=== PATIENT | male | born 1935 | race Caucasian/White ===

== ENCOUNTER 2018-09-12 13:02 | Emergency (ER) | payer OTHER ==
--- OUTSIDE RECORDS SUMMARY | 2018-09-12 13:04 | XMS REPORT ---
:1935 [facility] [address] [place] [address] Care Team Providers Name Role Phone ANH VALDEZ Unavailable Unavailable Problems This patient has no known problems. Allergies, Adverse Reactions, Alerts This patient has no known allergies or adverse reactions. Medications This patient has no known medications. Results Test Description Test Time Test Comments Text Results Atomic Results Result Comments B-Type Natriuretic Peptide 2017-02-24 12:18:00 Test Item Value Reference Range Comments B-Type Natriuretic Peptide (test [id number]) 114.3 pg/mL 0.0-100.0 Lipid [id number] 23:52:00 Test Item Value Reference Range Comments Cholesterol (test 151 mg/dL 0-200 code=CHOL) Triglycerides (test 111 mg/dL 9-200 code=TRIG) HDL (test code=HDL) 44 mg/dL 40-60 Chol/HDL (test 3.4 Ratio 0.0-5.0 code=CHOLPHDL) LDL, Calculated (test 85 mg/dL 0-130 (NOTE)RISK OF HEART code=LDLC) DISEASEPublished by [place] Heart AssociationAnalyte Optimal Boderline Increased RiskCHOL <200 200-239 >240TRIG <150 150-199 >200HDL Male: >60 <40HDL Female: >60 <50LDL <100 130-159 >160LDL NEAR OPTIMAL IS 100-129 VLDL (test code=VLDL) 22 mg/dL 5-40 LDL/HDL (test code=LDLPHDL) 2 Comprehensive Metabolic [id number] 23:52:00 Test Item Value Reference Range Comments Sodium (test code=NA) 140 mmol/L 135-145 Potassium (test code=K) 4.4 mmol/L 3.5-5.1 Chloride (test code=CL) 106 mmol/L 98-105 Carbon Dioxide (test 25 mmol/L 22-29 code=CO2) Glucose (test code=GLU) 95 mg/dL 70-115 Blood Urea Nitrogen 21 mg/dL 8-23 (test code=BUN) Creatinine (test 1.0 mg/dL 0.7-1.2 code=CREAT) Calcium (test code=CA) 9.7 mg/dL 8.3-10.5 Prot Total (test 6.9 g/dL 6.4-8.3 code=TP) Albumin (test code=ALB) 4.2 g/dL 3.5-5.2 A/G Ratio (test 1.6 Ratio code=AGRATIO) Globulin (test 2.7 2.9-3.1 code=GLOB) Bili Total (test 0.4 mg/dL 0.1-0.9 code=TBIL) Alk Phos (test 60 U/L 40-129 code=APHOS) AST (test code=AST) 32 U/L 1-40 ALT (test code=ALT) 17 U/L 1-41 BUN/Creatinine Ratio 21.0 (test code=BCRATIO) Anion Gap (test 9 mmol/L 7-16 code=AGAP) Estimated GFR (test >60 mL/min/1.73m2 eGFR (estimated Glomerular code=GFR) Filtration Rate) is an estimated value,calculated from the patient's serum creatinine using the MDRD equation.It is NOT the patient's actual GFR. The eGFR provides a more clinicallyuseful measure of kidney disease than serum creatinine alone.This calculation takes sex and race into account, if the informationis provided. If the race is not provided, and the patient isAfrican-Liberian, multiply by 1.212. If sex is not provided, and thepatient is female, multiply by 0.742. Results for patients <18 years ofage have not been validated by the MDRD study and should be interpretedwith caution.eGFR Result Interpretation:eGFR > or=60 is in the Normal RangeeGFR < 60 may mean kidney diseaseeGFR < 15 may mean kidney failureRanges recommended by the National Kidney Foundation,http://nkdep.nih .gov CBC with [id number] 23:32:00 Test Item Value Reference Range Comments WBC (test code=WBC) 7.6 K/cumm 4.4-10.5 RBC (test code=RBC) 4.82 M/cumm 4.10-5.70 Hemoglobin (test code=HGB) 14.3 gm/dL 13.4-17.4 Hematocrit (test code=HCT) 44.2 % 38.7-52.0 MCV (test code=MCV) 91.7 fL 80-100 MCH (test code=MCH) 29.6 pg 27.0-32.5 MCHC (test code=MCHC) 32.3 g/dL 32.0-37.5 RDW (test code=RDW) 15.1 % 11.5-14.5 Platelet Count (test code=PLTCT) 173 K/cumm 140-440 MPV (test code=MPV) 13.1 fL Diff Method (test code=DIFFM) Auto Neutrophil (test code=NEUT) 59.1 % 36-70 Lymphocyte (test code=LYMPH) 27.0 % 12-44 Monocyte (test code=MONO) 11.3 % 0-11 Eosinophil (test code=EOS) 2.1 % 0-7 Basophil (test code=BASO) 0.6 % 0-2 Neutro Abs (test code=ANEUT) 4.5 K/cumm 1.6-7.4 Lymph Abs (test code=ALYMPH) 2.0 K/cumm 0.5-4.6 Runnels Abs (test code=AMONO) 0.9 K/cumm 0.0-1.2 Eos Abs (test code=AEOS) 0.16 K/cumm 0.00-0.74 Baso Abs (test code=ABASO) 0.1 K/cumm 0.00-0.21
[2018-09-12] MEDS ORDERED: HYDROCODONE/APAP 5/325 MG TAB ONE (14:11)
--- NOTE | 2018-09-12 14:39 | RAD REPORT ---
EXAM DESCRIPTION: RAD - Chest Single View - 09/12/2018 2:29 pm CLINICAL HISTORY: fall, left rib pain Chest pain. COMPARISON: No comparisons FINDINGS: Portable technique limits examination quality. The lungs are grossly clear. Calcified pleural plaques are present bilaterally. The heart is upper li askhat normal size with multilead pacer/defibrillator device present. IMPRESSION: No acute intrathoracic process suspected. 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
--- NOTE | 2018-09-12 14:41 | RAD REPORT ---
EXAM DESCRIPTION: RAD - Ribs Left - 09/12/2018 2:30 pm CLINICAL HISTORY: PAIN Trauma, rib pain COMPARISON: Chest Single View dated 09/12/2018 FINDINGS: Calcified pleural plaques are seen. Diffuse osteopenia is seen. Mildly displaced lateral l eft fifth rib fracture is seen. Nondisplaced lateral fourth rib fracture is present.
--- NOTE | 2018-09-12 14:56 | EDPHYS ---
Physician Documentation [facility] Name: Yasmany Ambriz Sr Age: 82 yrs Sex: Male : 1935 Arrival Date: 09/12/2018 Time: 13:07 Bed 24 Private MD: Out, [facility] ED Physician Adam Linder HPI: 09/12 14:00 This 82 yrs old Male presents to ER via Ambulatory with complaints of Fall pm1 Injury - left rib cage. 14:00 Details of fall: The patient fell from an upright position, while walking. Onset: The pm1 symptoms/episode began/occurred 4 day(s) ago. Associated injuries: The patient sustained injury to the head, contusion, left lateral rib cage. Severity of symptoms: in the emergency department the symptoms are actually worse, at the left rib cage. The patient has not experienced similar symptoms in the past. Patient tripped walking on his driveway. Hit the left side of his forehead and landed on his left rib cage. No LOC, headache, or neck pain. Patient reports left rib cage was improving until he lifted a heavy object yesterday. No shortness of breath or chest pain. Historical: - Allergies: 13:13 Dilaudid; la1 - Home Meds: 13:13 Plavix Oral [Active]; Isosorbide Mononitrate Oral [Active]; la1 - PMHx: 13:13 Hypertension; la1 - PSHx: 13:13 pacemaker/defib; la1 - Immunization history:: Adult Immunizations up to date. - Social history:: Smoking status: Patient uses tobacco products. - Ebola Screening: : No symptoms or risks identified at this time. ROS: 14:00 Constitutional: Negative for fever, chills, and weight loss, Eyes: Negative for injury, pm1 pain, redness, and discharge, ENT: Negative for injury, pain, and discharge, Neck: Negative for injury, pain, and swelling, Respiratory: Negative for shortness of breath, cough, wheezing, and pleuritic chest pain, Abdomen/GI: Negative for abdominal pain, nausea, vomiting, diarrhea, and constipation, Back: Negative for injury and pain, : Negative for injury, bleeding, discharge, and swelling, MS/Extremity: Negative for injury and deformity, Skin: Negative for injury, rash, and discoloration, Neuro: Negative for headache, weakness, numbness, tingling, and seizure. 14:00 Cardiovascular: Positive for left rib cage pain, Negative for chest pain, edema, orthopnea, palpitations. Exam: 14:00 Constitutional: This is a well developed, well nourished patient who is awake, alert, pm1 and in no acute distress. Head/Face: Normocephalic, atraumatic. Eyes: Pupils equal round and reactive to light, extra-ocular motions intact. Lids and lashes normal. Conjunctiva and sclera are non-icteric and not injected. Cornea within normal limits. Periorbital areas with no swelling, redness, or edema. ENT: Nares patent. No nasal discharge, no septal abnormalities noted. Tympanic membranes are normal and external auditory canals are clear. Oropharynx with no redness, swelling, or masses, exudates, or evidence of obstruction, uvula midline. Mucous membranes moist. Neck: Trachea midline, no thyromegaly or masses palpated, and no cervical lymphadenopathy. Supple, full range of motion without nuchal rigidity, or vertebral point tenderness. No Meningismus. 14:00 Cardiovascular: Regular rate and rhythm with a normal S1 and S2. No gallops, murmurs, or rubs. Normal PMI, no JVD. No pulse deficits. Respiratory: Lungs have equal breath sounds bilaterally, clear to auscultation and percussion. No rales, rhonchi or wheezes noted. No increased work of breathing, no retractions or nasal flaring. Abdomen/GI: Soft, non-tender, with normal bowel sounds. No distension or tympany. No guarding or rebound. No evidence of tenderness throughout. Back: No spinal tenderness. No costovertebral tenderness. Full range of motion. 14:00 MS/ Extremity: Pulses equal, no cyanosis. Neurovascular intact. Full, normal range of motion. 14:00 Chest/axilla: Inspection: normal, Palpation: crepitus, is not appreciated, tenderness, that is mild, of the lateral aspect of left rib cage, that totally reproduces the patient's complaints. 14:00 Skin: Appearance: normal except for affected area, injury, contusion(s), that are superficial, of the left side of forehead. 14:00 Neuro: Orientation: is normal, Motor: is normal, moves all fours, Gait: is steady, at a normal pace, without difficulty. Vital Signs: 13:15 BP 124 / 84; Pulse 60; Resp 16; Temp 97.2; Pulse Ox 98% on R/A; Weight 63.5 kg; Height la1 5 ft. 6 in. (167.64 cm); 14:45 BP 128 / 76; Pulse 64; Resp 17; Pulse Ox 99% on R/A; kr2 13:15 Body Mass Index 22.60 (63.50 kg, 167.64 cm) la1 MDM: 13:27 Patient medically screened. pm1 13:54 Refusal of service: The patient/guardian displays adequate decision making capability pm1 and despite a detailed discussion of alternatives, benefits, risks, and consequences refuses: CT Scan, Refused CT head and C-spine. 14:53 Data reviewed: vital signs. Data interpreted: Pulse oximetry: on room air is 98 %. pm1 Interpretation: normal. Counseling: I had a detailed discussion with the patient and/or guardian regarding: the historical points, exam findings, and any diagnostic results supporting the discharge/admit diagnosis, radiology results, the need for outpatient follow up, to return to the emergency department if symptoms worsen or persist or if there are any questions or concerns that arise at home. 09/12 13:54 Order name: Chest Single View XRAY; Complete Time: 14:45 pm1 09/12 13:54 Order name: Ribs Left XRAY; Complete Time: 14:45 pm1 Administered Medications: 14:06 Drug: [place] 5 mg-325 mg 1 tabs Route: PO; kr2 15:13 Follow up: Response: No adverse reaction kr2 15:13 Follow up: Response: Pain is decreased kr2 Disposition: 09/13 10:23 Co-signature as Attending Physician, Adam Linder MD. Disposition: 09/12/18 14:55 Discharged to Home. Impression: Multiple fractures of ribs - lateral mildly displaced left 5th rib and lateral nondisplaced left 4th rib fracture. - Condition is Stable. - Discharge Instructions: Rib Fracture, Rib Fracture, [id number]. - Prescriptions for Tylenol- Codeine #3 300-30 mg Oral Tablet - take 2 tablet by ORAL route every 6 hours As needed; 30 tablet. - Medication Reconciliation Form, Thank You Letter, Prescription Opioid Use form. - Follow up: Emergency Department; When: As needed; Reason: Worsening of condition. Follow up: Private Physician; When: 2 - 3 days; Reason: Recheck today's complaints, Continuance of care, Re-evaluation by your physician. - Problem is new. - Symptoms have improved. Signatures: Dispatcher [employer] EDMS Yoshi Tucker RN RN la1 Jourdan White, PELLET PREPARATION OPERATOR PELLET PREPARATION OPERATOR pm1 Adam Linder MD MD gs Reaves, Karey RN RN kr2 Corrections: (The following items were deleted from the chart) 09/12 15:16 14:55 09/12/2018 14:55 Discharged to Home. Impression: Multiple fractures of ribs - kr2 lateral mildly displaced left 5th rib and lateral nondisplaced left 4th rib fracture. Condition is Stable. Forms are Medication Reconciliation Form, Thank You Letter, Antibiotic Education, Prescription Opioid Use. Follow up: Emergency Department; When: As needed; Reason: Worsening of condition. Follow up: Private Physician; When: 2 - 3 days; Reason: Recheck today's complaints, Continuance of care, Re-evaluation by your physician. Problem is new. Symptoms have improved. pm1
--- NOTE | 2018-09-12 14:56 | ER ---
Nurse's Notes [facility] Name: Yasmany Ambriz Sr Age: 82 yrs Sex: Male : 1935 Arrival Date: 09/12/2018 Time: 13:07 Bed 24 Private MD: Out, [facility] Diagnosis: Multiple fractures of ribs-lateral mildly displaced left 5th rib and lateral nondisplaced left 4th rib fracture Presentation: 09/12 13:11 Presenting complaint: Patient states: Mechanical fall from standing on Friday with la1 injury to left side of forehead and left ribs. Pt denies LOC, states he is here for the pain in his ribs. Transition of care: patient was not received from another setting of care. Onset of symptoms was September 12, 2018. Risk Assessment: Do you want to hurt yourself or someone else? Patient reports no desire to harm self or others. Initial Sepsis Screen: Does the patient meet any 2 criteria? No. Patient's initial sepsis screen is negative. Does the patient have a suspected source of infection? No. Patient's initial sepsis screen is negative. Care prior to arrival: None. 13:11 Method Of Arrival: Ambulatory la1 13:11 Acuity: SEEMA 3 la1 Historical: - Allergies: 13:13 Dilaudid; la1 - Home Meds: 13:13 Plavix Oral [Active]; Isosorbide Mononitrate Oral [Active]; la1 - PMHx: 13:13 Hypertension; la1 - PSHx: 13:13 pacemaker/defib; la1 - Immunization history:: Adult Immunizations up to date. - Social history:: Smoking status: Patient uses tobacco products. - Ebola Screening: : No symptoms or risks identified at this time. Screenin:30 Abuse screen: Denies threats or abuse. Denies injuries from another. Nutritional kr2 screening: No deficits noted. Tuberculosis screening: No symptoms or risk factors identified. Fall Risk Fall in past 12 months (25 points). Assessment: 13:30 General: Appears in no apparent distress. uncomfortable, well groomed, well developed, kr2 well nourished, Behavior is calm, cooperative, appropriate for age. Pain: Complains of pain in left ribs Pain does not radiate. Pain currently is 7 out of 10 on a pain scale. Quality of pain is described as sharp, tender, Is continuous, Alleviated by rest, Aggravated by increased activity. Neuro: Level of Consciousness is awake, alert, obeys commands, Oriented to person, place, time, situation, Appropriate for age. Cardiovascular: Capillary refill < 3 seconds in bilateral fingers Patient's skin is warm and dry. Respiratory: Airway is patent Respiratory effort is even, unlabored, Respiratory pattern is regular, symmetrical, Breath sounds are clear bilaterally. GI: Abdomen is flat, non-distended. EENT: Nares are clear bilaterally Oral mucosa is moist. Derm: Skin is intact, is healthy with good turgor, Skin is pink, warm \T\ dry. Bruising that is dark purple, green, on left side of forehead. Musculoskeletal: Circulation, motion, and sensation intact. 14:30 Reassessment: Patient appears in no apparent distress at this time. Patient and/or kr2 family updated on plan of care and expected duration. Pain level reassessed. Patient is alert, oriented x 3, equal unlabored respirations, skin warm/dry/pink. 15:13 Reassessment: Patient appears in no apparent distress at this time. Patient and/or kr2 family updated on plan of care and expected duration. Pain level reassessed. Patient is alert, oriented x 3, equal unlabored respirations, skin warm/dry/pink. Patient states feeling better. Vital Signs: 13:15 BP 124 / 84; Pulse 60; Resp 16; Temp 97.2; Pulse Ox 98% on R/A; Weight 63.5 kg; Height la1 5 ft. 6 in. (167.64 cm); 14:45 BP 128 / 76; Pulse 64; Resp 17; Pulse Ox 99% on R/A; kr2 13:15 Body Mass Index 22.60 (63.50 kg, 167.64 cm) la1 ED Course: 13:07 Patient arrived in ED. sb2 13:08 Out, of Town is Private Physician. sb2 13:13 Triage completed. la1 13:14 Arm band placed on left wrist. la1 13:20 Jourdan White NP is PHCP. pm1 13:20 Adam Linder MD is Attending Physician. pm1 13:22 Warm blanket given. jp3 13:30 Patient has correct armband on for positive identification. Bed in low position. Call kr2 light in reach. Side rails up X 1. Adult w/ patient. Pulse ox on. NIBP on. 14:29 Chest Single View XRAY In Process Unspecified. EDMS 14:30 Ribs Left XRAY In Process Unspecified. EDMS 15:15 No provider procedures requiring assistance completed. Patient did not have IV access kr2 during this emergency room visit. Administered Medications: 14:06 Drug: Capac 5 mg-325 mg 1 tabs Route: PO; kr2 15:13 Follow up: Response: No adverse reaction kr2 15:13 Follow up: Response: Pain is decreased kr2 Outcome: 14:55 Discharge ordered by MD. pm1 15:15 Discharged to home ambulatory, with family. kr2 15:15 Condition: good 15:15 Discharge instructions given to patient, family, Instructed on discharge instructions, follow up and referral plans. medication usage, deep breathing Demonstrated understanding of instructions, follow-up care, medications, Prescriptions given X 1. 15:16 Patient left the ED. kr2 Signatures: Dispatcher [employer] EDMS Yoshi Tucker RN RN la1 Jourdan White, INDRA DYE COLORIST FORMULATOR pm1 Jenn Kuo RN RN kr2 Agustina Lucas sb2 Jefrfey Lyles jp3
== END 2018-09-12 15:16 | disposition home or self-care (01) ==
LOC: ER 13:02
DX: S22.42XA Multiple fractures of ribs, left side, initial encounter for closed fracture (principal); W01.0XXA Fall on same level from slipping, tripping and stumbling without subsequent striking against object, initial encounter; Y93.01 Activity, walking, marching and hiking; Y92.093 Driveway of other non-institutional residence as the place of occurrence of the external cause; J92.9 Pleural plaque without asbestos; M85.88 Other specified disorders of bone density and structure, other site; I10 Essential (primary) hypertension; Z79.02 Long term (current) use of antithrombotics/antiplatelets; Z79.899 Other long term (current) drug therapy; Z95.810 Presence of automatic (implantable) cardiac defibrillator
CPT/HCPCS: 71045; 99284

== ENCOUNTER 2022-06-07 10:12 | Emergency (ER) | payer OTHER ==
--- OUTSIDE RECORDS SUMMARY | 2022-06-07 10:16 | XMS REPORT | Continuity of Care Document ---
:1935 Author Organization [facility] t Address [address] [place] [address] Care Team Providers Name Role Phone Teo Attending Clinician Unavailable ANH VALDEZ Attending Clinician Unavailable Teo Admitting Clinician Unavailable ANH VALDEZ Admitting Clinician Unavailable Payers Payer Name Policy Type Policy Number Effective Date Expiration Date Chapin BRYANT (MEDICARE [id number] 2021 REPLACEMENT PPO) 00:00:00 Problems Condition Condition Condition Status Onset Resolution Last Treating Co mments Source Name Details Category Date Date Treatment Clinician Date Vitamin D Vitamin D Problem Active [facility] deficiency [facility]iciency [facility] Hyperlipid Hyperlipid Problem Active [facility] emia [facility] 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 [facility] Dehydratio Dehydratio Problem Active [facility] n n [facility] Essential Essential Problem Active [facility] hypertensi Hypertensi da on on Medical Group Hypertensi Hypertensi Problem Active M [facility] ve heart ve Heart da disease Disease Medical Group Low blood Low Blood Problem Active [facility] pressure Pressure [facility] Upper Upper Problem Active [facility] respirator Respirator da y y Medical infection Infection Grou p Acute Acute Problem Active [facility] bronchitis Bronchitis [facility] Chronic Chronic Problem Active [facility] sinusitis Sinusitis [facility] Allergic Allergic Problem Active [facility] rhinitis Rhinitis [facility] Congestion Congestion Problem Active M [facility] of nasal of Nasal da sinus Sinus Medical Group Pneumonia Pneumonia Problem Active [facility] Renal Renal Problem Active [facility] impairment Impairment [facility] 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 Prostate Medica l Group 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 Piriformis Piriformis Problem Active [facility] syndrome Syndrome [facility] Unintentio Unintentio Problem Active [facility] nal weight nal Weight da loss Loss Medical Group Unexplaine Unexplaine Problem Active M [facility] d weight d Weight da loss Loss Medical Group Early Early Problem Active [facility] systolic Systolic da murmur [facility] Cough Cough Problem Active [facility] Persistent Persistent Problem Active [facility] cough Cough [facility] Problem, Problem, Problem Active [facility] abnormal Abnormal da test Test Medical Group Laboratory Laboratory Problem Active M [facility] test Test da result Result Medical abnormal Abnormal Group Disorder Disorder Problem Active [facility] of trunk of Trunk [facility] Allergies, Adverse Reactions, Alerts Allergy Allergy Status Severity Reaction(s) Onset Inactive Treating Comm ents Source Name Type Date Date Clinician Dilaudid Allergy Active [facility] Metoprol Allergy Active Itching [facility] Social History Smoking Status Start Date Stop Date Source Former Smoker [facility] Medications Ordered Filled Start Stop Current Ordering Indication Dosage Frequency Signature Comments Components Source Medication Medication Date Date Medication? Clinician (SIG) Name Name acetaminoph acetaminoph No acetaminop [place] en 300 en 300 hen 300 da mg-codeine mg-codeine mg-codeine Medical 30 mg 30 mg 30 mg Group tablet tablet tablet Allergy Allergy No Allergy [facility] Relief Relief Relief da (fexofenadi (fexofenadi (fexofenad Medical ne) 180 mg ne) 180 mg ine) 180 Group tablet TAKE tablet TAKE mg tablet 1 TABLET BY 1 TABLET BY TAKE 1 MOUTH EVERY MOUTH EVERY TABLET BY DAY IN THE DAY IN THE MOUTH MORNING MORNING EVERY DAY IN THE MORNING amiodarone amiodarone No amiodarone [place] 200 mg 200 mg 200 mg da tablet TAKE tablet TAKE tablet Medical 1 TABLET BY 1 TABLET BY TAKE 1 Group MOUTH EVERY MOUTH EVERY TABLET BY DAY DAY MOUTH EVERY DAY amlodipine amlodipine No amlodipine [place] 5 mg tablet 5 mg tablet 5 mg d a TAKE 1 TAKE 1 tablet Medical TABLET BY TABLET BY TAKE 1 Brii up MOUTH EVERY MOUTH EVERY TABLET BY DAY DAY MOUTH EVERY DAY aspirin 81 aspirin 81 No 1 Q1D aspirin 81 [place] mg mg mg da effervescen effervescen effervesce Medical t tablet t tablet nt tablet Gr oup Take 1 Take 1 Take 1 tablet tablet tablet every day every day every day by oral by oral by oral route. route. route. clopidogrel clopidogrel No clopidogre [place] 75 mg 75 mg l 75 mg da tablet TAKE tablet TAKE tablet Medical 1 TABLET BY 1 TABLET BY TAKE 1 Group MOUTH EVERY MOUTH EVERY TABLET BY DAY DAY MOUTH EVERY DAY dutasteride dutasteride No dutasterid [facility] 0.5 mg 0.5 mg e 0.5 mg da capsule capsule capsule Medica l TAKE 1 TAKE 1 TAKE 1 Group CAPSULE BY CAPSULE BY CAPSULE BY MOUTH EVERY MOUTH EVERY MOUTH DAY DAY EVERY DAY Fluad Quad Fluad Quad No Fluad Quad [place] (6 (6 ( da 5yr up)(PF) 5yr up)(PF) 65yr M edical 60 mcg (15 60 mcg (15 up)(PF) 60 Group mcg x mcg x mcg (15 4)/0.5mL IM 4)/0.5mL IM mcg x syringe syringe 4)/0.5mL IM syringe isosorbide isosorbide No isosorbide [place] mononitrate mononitrate mononitrat da ER 30 mg ER 30 mg e ER 30 mg M edical tablet,exte tablet,exte tablet,ext Group nded nded ended release 24 release 24 release 24 hr TAKE 1 hr TAKE 1 hr TAKE 1 TABLET BY TABLET BY TABLET BY MOUTH EVERY MOUTH EVERY MOUTH DAY DAY EVERY DAY Kenalog 40 Kenalog 40 No Kenalog 40 [facility] mg/mL mg/mL mg/mL da suspension suspension suspension Medical for for for Group injection injection injection 40mg/ml 40mg/ml 40mg/ml suspension suspension suspension for for for injection injection injection 40mg as 40mg as 40mg as directed. directed. directed. loratadine loratadine No loratadine [place] 10 mg 10 mg 10 mg da tablet TAKE tablet TAKE tablet Medical 1 TABLET BY 1 TABLET BY TAKE 1 Group MOUTH EVERY MOUTH EVERY TABLET BY DAY IN THE DAY IN THE MOUTH EVENING FOR EVENING FOR EVERY DAY 30 DAYS 30 DAYS IN THE EVENING FOR 30 DAYS lovastatin lovastatin No lovastatin [place] 40 mg 40 mg 40 mg da tablet TAKE tablet TAKE tablet Medical 1 TABLET BY 1 TABLET BY TAKE 1 Group MOUTH EVERY MOUTH EVERY TABLET BY DAY DAY MOUTH EVERY DAY montelukast montelukast No montelukas [place] 10 mg 10 mg t 10 mg da tablet TAKE tablet TAKE tablet Medical 1 TABLET(S) 1 TABLET(S) TAKE 1 Group EVERY DAY EVERY DAY TABLET(S) BY ORAL BY ORAL EVERY DAY ROUTE IN ROUTE IN BY ORAL THE EVENING THE EVENING ROUTE IN FOR 90 FOR 90 THE DAYS. DAYS. EVENING FOR 90 DAYS. nebivolol 5 nebivolol 5 No nebivolol [facility] mg tablet mg tablet 5 mg da TAKE 1 TAKE 1 tablet Medical TABLET BY TABLET BY TAKE 1 Brii up MOUTH EVERY MOUTH EVERY TABLET BY DAY DAY MOUTH EVERY DAY Dami-Synephr Dami-Synephr No 2spray( BID Dami-Syneph [place] ine ine s) rine da (phenylephr (phenylephr (phenyleph Medical ine) 0.25 % ine) 0.25 % rine) 0.25 Group nasal spray nasal spray % nasal Take 2 Take 2 spray Take sprays sprays 2 sprays twice a day twice a day twice a by nasal by nasal day by route as route as nasal directed. directed. route as directed. nitroglycer nitroglycer No nitroglyce [place] in 0.4 mg in 0.4 mg rin 0.4 mg da sublingual sublingual sublingual Medical tablet tablet tablet Group PLACE [address] 1 TABLET BY TABLET BY TABLET BY SUBLINGUAL SUBLINGUAL SUBLINGUAL ROUTE ROUTE ROUTE DIRECTED. DIRECTED. DIRECTED. promethazin promethazin No 10mL Q7H promethazi [place] e 6.25 e 6.25 ne 6.25 da mg-codeine mg-codeine mg-codeine Medical 10 mg/5 mL 10 mg/5 mL 10 mg/5 mL Group syrup Take syrup Take syrup Take 10 mL every 10 mL every 10 mL 6-8 hours 6-8 hours every 6-8 by oral by oral hours by route as route as oral route needed. needed. as needed. Suprep Suprep No Suprep [place] Bowel Prep Bowel Prep Bowel Prep da Kit 17.5 Kit 17.5 Kit 17.5 Med ical gram-3.13 gram-3.13 gram-3.13 Group gram-1.6 gram-1.6 gram-1.6 gram oral gram oral gram oral solution solution solution USE USE USE DIRECTED DIRECTED DIRECTED tamsulosin tamsulosin No tamsulosin [place] 0.4 mg 0.4 mg 0.4 mg da capsule capsule capsule Medica l TAKE 1 TAKE 1 TAKE 1 Group CAPSULE BY CAPSULE BY CAPSULE BY MOUTH EVERY MOUTH EVERY MOUTH DAY DAY EVERY DAY Immunizations Ordered Immunization Filled Immunization Date Status Commen ts Source Name Name COVID-19, mRNA, COVID-19, mRNA, 2020-12-30 Completed [facility] LNP-S, PF, 100 LNP-S, PF, 100 00:00:00 Medica l Group mcg/0.5 mL dose mcg/0.5 mL dose (Moderna) (Moderna) COVID-19, mRNA, COVID-19, mRNA, 2020-12-02 Completed [facility] LNP-S, PF, 100 LNP-S, PF, 100 00:00:00 Medica l Group mcg/0.5 mL dose mcg/0.5 mL dose (Moderna) (Moderna) influenza, influenza, 2018-08-12 Completed [place] injectable, injectable, 00:00:00 Medical Grou p quadrivalent quadrivalent pneumococcal pneumococcal 2017-08-29 Completed [place] conjugate PCV 13 conjugate PCV 13 10:56:00 Sc dical Group influenza, high dose influenza, high dose 2017-08-29 Completed [place] seasonal seasonal 10:55:00 Medical Group influenza, high dose influenza, high dose 2016-08-08 Completed [place] seasonal seasonal 10:20:00 Medical Group influenza, high dose influenza, high dose 2015-08-10 Completed [place] seasonal seasonal 10:40:00 Medical Group influenza, influenza, 2014-07-28 Completed [place] injectable, injectable, 11:29:24 Medical Grou p quadrivalent quadrivalent influenza, high dose influenza, high dose 2013-08-09 Completed [place] seasonal seasonal 00:00:00 Medical Group influenza, seasonal, influenza, seasonal, 2012-09-29 Completed [place] injectable injectable 00:00:00 Medical Group influenza, influenza, 2011-10-27 Completed [place] injectable, injectable, 00:00:00 Medical Grou p quadrivalent, quadrivalent, preservative free preservative free pneumococcal pneumococcal 2009-10-27 Completed [place] polysaccharide PPV23 polysaccharide PPV23 00:00:00 Medical Group Vital Signs Vital Name Observation Time Observation Value Comments Source BP Diastolic 2022-04-12 00:00:00 74 mm[Hg] [facility] Height 2022-04-12 00:00:00 66 [in_i] [facility] BMI (Body Mass 2022-04-12 00:00:00 23.6 kg/m2 [facility] Medical Index) Group BP Systolic 2022-04-12 00:00:00 128 mm[Hg] [facility] Body Weight 2022-04-12 00:00:00 2336 [oz_av] [facility] BP Diastolic 2021-12-13 00:00:00 75 mm[Hg] [facility] Height 2021-12-13 00:00:00 66 [in_i] [facility] BMI (Body Mass 2021-12-13 00:00:00 23.1 kg/m2 [facility] Medical Index) Group BP Systolic 2021-12-13 00:00:00 132 mm[Hg] [facility] Body Weight 2021-12-13 00:00:00 2288 [oz_av] [facility] BP Diastolic 2021-09-13 00:00:00 79 mm[Hg] [facility] Height 2021-09-13 00:00:00 66 [in_i] [facility] BMI (Body Mass 2021-09-13 00:00:00 23.6 kg/m2 [facility] Medical Index) Group BP Systolic 2021-09-13 00:00:00 135 mm[Hg] [facility] Body Weight 2021-09-13 00:00:00 2336 [oz_av] [facility] BP Diastolic 2021-05-17 00:00:00 82 mm[Hg] [facility] Height 2021-05-17 00:00:00 66 [in_i] [facility] BMI (Body Mass 2021-05-17 00:00:00 23.4 kg/m2 [facility] Medical Index) Group BP Systolic 2021-05-17 00:00:00 139 mm[Hg] [facility] Body Weight 2021-05-17 00:00:00 2320 [oz_av] [facility] Height 2020-08-17 00:00:00 66 [in_i] [facility] BMI (Body Mass 2020-08-17 00:00:00 23.4 kg/m2 [facility] Medical Index) Group Body Weight 2020-08-17 00:00:00 2320 [oz_av] [facility] BP Diastolic 2020-07-05 00:00:00 75 mm[Hg] [facility] Height 2020-07-05 00:00:00 66 [in_i] [facility] BMI (Body Mass 2020-07-05 00:00:00 23.4 kg/m2 [facility] Medical Index) Group BP Systolic 2020-07-05 00:00:00 126 mm[Hg] [facility] Body Weight 2020-07-05 00:00:00 2320 [oz_av] [facility] BP Diastolic 2020-04-05 00:00:00 77 mm[Hg] [facility] Height 2020-04-05 00:00:00 66 [in_i] [facility] BMI (Body Mass 2020-04-05 00:00:00 23.6 [facility] BP Systolic 2020-04-05 00:00:00 128 mm[Hg] [facility] Body Weight 2020-04-05 00:00:00 2336 [oz_av] [facility] BP Diastolic 2019-12-01 00:00:00 85 mm[Hg] [facility] Height 2019-12-01 00:00:00 66 [in_i] [facility] BMI (Body Mass 2019-12-01 00:00:00 24.4 kg/m2 [facility] BP Systolic 2019-12-01 00:00:00 140 mm[Hg] [facility] Body Weight 2019-12-01 00:00:00 2416 [oz_av] [facility] BP Diastolic 2019-10-22 00:00:00 64 mm[Hg] [facility] Height 2019-10-22 00:00:00 66 [in_i] [facility] BMI (Body Mass 2019-10-22 00:00:00 23.9 kg/m2 [facility] BP Systolic 2019-10-22 00:00:00 114 mm[Hg] [facility] Body Weight 2019-10-22 00:00:00 2369.6 [oz_av] [facility] BP Diastolic 2019-08-25 00:00:00 74 mm[Hg] [facility] Height 2019-08-25 00:00:00 66 [in_i] [facility] BMI (Body Mass 2019-08-25 00:00:00 23.4 kg/m2 [facility] Medical Index) Group BP Systolic 2019-08-25 00:00:00 139 mm[Hg] [facility] Body Weight 2019-08-25 00:00:00 2324 [oz_av] [facility] BP Diastolic 2019-07-01 00:00:00 67 mm[Hg] [facility] Height 2019-07-01 00:00:00 66 [in_i] [facility] BMI (Body Mass 2019-07-01 00:00:00 23.1 kg/m2 [facility] Medical Index) Group BP Systolic 2019-07-01 00:00:00 126 mm[Hg] [facility] Body Weight 2019-07-01 00:00:00 2286.4 [oz_av] [facility] BP Diastolic 2019-06-10 00:00:00 68 mm[Hg] [facility] Height 2019-06-10 00:00:00 66 [in_i] [facility] BMI (Body Mass 2019-06-10 00:00:00 23 kg/m2 [facility] Medical Index) Group BP Systolic 2019-06-10 00:00:00 133 mm[Hg] [facility] Body Weight 2019-06-10 00:00:00 2281.6 [oz_av] [facility] BP Diastolic 2019-04-28 00:00:00 68 mm[Hg] [facility] Height 2019-04-28 00:00:00 66 [in_i] [facility] BMI (Body Mass 2019-04-28 00:00:00 22.8 kg/m2 [facility] Medical Index) Group BP Systolic 2019-04-28 00:00:00 126 mm[Hg] [facility] Body Weight 2019-04-28 00:00:00 2260.8 [oz_av] [facility] BP Diastolic 2019-03-25 00:00:00 75 mm[Hg] [facility] Height 2019-03-25 00:00:00 66 [in_i] [facility] BMI (Body Mass 2019-03-25 00:00:00 22.7 kg/m2 [facility] Medical Index) Group BP Systolic 2019-03-25 00:00:00 142 mm[Hg] [facility] Body Weight 2019-03-25 00:00:00 2246.4 [oz_av] [facility] BP Diastolic 2019-01-28 00:00:00 69 mm[Hg] [facility] Height 2019-01-28 00:00:00 66 [in_i] [facility] BMI (Body Mass 2019-01-28 00:00:00 22.7 kg/m2 [facility] Medical Index) Group BP Systolic 2019-01-28 00:00:00 128 mm[Hg] [facility] Body Weight 2019-01-28 00:00:00 2249.6 [oz_av] [facility] BP Diastolic 2018-12-24 00:00:00 79 mm[Hg] [facility] Height 2018-12-24 00:00:00 66 [in_i] [facility] BMI (Body Mass 2018-12-24 00:00:00 23.8 kg/m2 [facility] Index) Group BP Systolic 2018-12-24 00:00:00 119 mm[Hg] [facility] Body Weight 2018-12-24 00:00:00 2356.8 [oz_av] [facility] Procedures Procedure Date / Time Performing Clinician Source Performed XR, foot, 2 view 2019-12-01 00:00:00 Mary Fang [facility] Group unlisted imaging order 2019-06-10 00:00:00 [facility] ECG WITH INTERPRETATION 12 2018-12-16 00:00:00 Leoncio gao Medical LEADS Group Colonoscopy 2015-08-28 00:00:00 [place] [facility] Cardiac Surgery 2014-12-20 00:00:00 [place] Pacemaker [facility] Cholecystectomy [facility] Hernia Repair [facility] Thyroid Surgery [facility] Tonsillectomy [facility] Partial Resection of Colon [facility] Plan of Care Planned Activity Planned Date Details Comments Source Diagnostic Test 2022-04-12 vitamin D, [place] [facility] Pending 00:00:00 25-hydroxy, total, Group serum [code = vitamin D, 25-hydroxy, total, serum] Diagnostic Test 2022-04-12 lipid panel, serum [facility] Pending 00:00:00 [code = lipid panel, Group serum] Diagnostic Test 2022-04-12 CMP, serum or plasma [facility] Pending 00:00:00 [code = CMP, serum Group or plasma] Diagnostic Test 2022-04-12 HbA1c (hemoglobin [facility] Pending 00:00:00 A1c), blood [code = Group HbA1c (hemoglobin A1c), blood] Diagnostic Test 2022-04-12 TSH, serum or plasma [facility] Pending 00:00:00 [code = TSH, serum Group or plasma] Diagnostic Test 2022-04-12 BNP (B-type [place] [facility] Pending 00:00:00 natriuretic Group peptide), serum or plasma [code = BNP (B-type natriuretic peptide), serum or plasma] Future Appointment 2022-08-23 [facility] 09[facility]:00 [facility] [address]; , [place] [address] Instructions [facility] Encounters Start End Encounter Admission Attending Care Care Encounter Source Date/Time Date/Time Type Type Clinicians Facility Department ID 2022-04-12 2022-04-12 Outpatient Teo VASQUEZ [facility] [id number] [place] 09:51:00 09:51:00 617 [facility] 2022-04-12 2022-04-12 Outpatient Teo VASQUEZ [facility] [id number] 220 [place] 09:51:00 09:51:00 623 [facility] 2022-04-12 2022-04-12 Outpatient Ambeaux [facility] [id number] 220 [place] 09:51:00 09:51:00 626 [facility] 2022-04-12 2022-04-12 Max MMG [place] - [id number] M at[facility] 00:00:00 00:00:00 Discovery Teo da PA: 600 [facility] - [address] [place] [address] , Ph. 2021-12-17 2021-12-17 Outpatient Am[facility]aux [facility]G [id number] 220 [place] 08:11:00 08:11:00 610 [facility] 2021-12-13 2021-12-13 Outpatient Am[facility]aux [facility]G [id number] 220 [place] 10:03:00 10:03:00 217 [facility] 2021-12-13 2021-12-13 Outpatient Am[facility]aux [facility]G [id number] 220 [place] 10:03:00 10:03:00 221 [facility] 2021-12-13 2021-12-13 Max MMG [place] - [id number] M at[facility] 00:00:00 00:00:00 Discovery Teo da PA: [address] [place] [address] [place] [address] , Ph. 2021-09-27 2021-09-27 Outpatient Am[facility] MMG [id number] 220 [place] 02:30:00 02:30:00 216 [facility] 2021-09-13 2021-09-13 Outpatient Am[facility]G [id number] 211 [place] 10:21:00 10:21:00 122 [facility] 2021-09-13 2021-09-13 Outpatient [facility] MMG [id number] 211 [place] 10:21:00 10:21:00 118 [facility] 2021-09-13 2021-09-13 Max MMG [place] - [id number] M at[facility] 00:00:00 00:00:00 Discovery Teo da PA: 600 [facility] - [address], [facility] [address] , Ph. 2021-07-19 2021-07-19 Outpatient Am[facility] MMG MMG [id number] 210 [place] 04:30:00 04:30:00 923 [facility] 2021-05-17 2021-05-17 Outpatient Am[facility]aux MMG MMG [id number] 210 [place] 05:19:00 05:19:00 722 [facility] 2021-05-17 2021-05-17 Outpatient Am[facility] MMG MMG [id number] 210 [place] 05:19:00 05:19:00 811 [facility] 2021-05-17 2021-05-17 Max MMG [place] - [id number] M at[facility] 00:00:00 00:00:00 Discovery Teo da PA: 600 [facility] - [address], [facility] [address] , Ph. 2020-09-04 2020-09-04 Outpatient [facility] MMG MMG [id number] 210 [place] 05:24:00 05:24:00 721 [facility] 2020-09-04 2020-09-04 Outpatient Am[facility] MMG MMG [id number] 201 [place] 05:24:00 05:24:00 109 [facility] 2020-08-23 2020-08-23 Outpatient Am[facility] MMG MMG [id number] 201 [place] 05:04:00 05:04:00 028 [facility] 2020-08-17 2020-08-17 Outpatient [facility] MMG MMG 2610-20 201 [place] 05:35:00 05:35:00 022 [facility] 2020-08-17 2020-08-17 Outpatient [facility] MMG MMG 2610-20 201 [place] 05:35:00 05:35:00 023 [facility] 2020-08-17 2020-08-17 Outpatient [facility] MM[facility] MMG 2610-20 201 [place] 05:35:00 05:35:00 026 [facility] 2020-08-17 2020-08-17 Max MMG [place] - [id number] M at[facility]or 00:00:00 00:00:00 Discovery Teo da PA: 600 [facility] [place] - [address] [place] [address] , Ph. 2020-07-14 2020-07-14 Outpatient Am[facility] MMG MMG [id number] 200 [place] 12:19:00 12:19:00 928 [facility] 2020-07-14 2020-07-14 Outpatient Am[facility] MMG MMG [id number] 201 [place] 12:19:00 12:19:00 020 [facility] 2020-07-05 2020-07-05 Outpatient Am[facility] MMG MMG [id number] 200 [place] 08:28:00 08:28:00 909 [facility] 2020-07-05 2020-07-05 Max MMG [place] - [id number] M at[facility]or 00:00:00 00:00:00 Discovery [facility] da [facility]: [facility] [address] [place] [address] , Ph. 2020-04-14 2020-04-14 Outpatient Am[facility] MMG MMG 2610-20 200 [place] 11:47:00 11:47:00 721 [facility] 2020-04-14 2020-04-14 Outpatient [facility] MMG MMG [id number] 200 [place] 11:47:00 11:47:00 908 [facility] 2020-04-05 2020-04-05 Outpatient [facility] MMG MMG [id number] 200 [place] 07:23:00 07:23:00 610 [facility] 2020-04-05 2020-04-05 Max MMG [place] - [id number] M at[facility]or 00:00:00 00:00:00 Discovery Teo da PA: 600 [facility] [place] - [address] [place] [place] [address] , Ph. 2019-12-10 2019-12-10 Outpatient [facility] MMG MMG [id number] 200 [place] 11:56:00 11:56:00 507 [facility] 2019-12-10 2019-12-10 Outpatient [facility] MMG MMG [id number] 200 [place] 11:56:00 11:56:00 609 [facility] 2019-12-01 2019-12-01 Outpatient Am[facility] MMG MMG [id number] 200 [place] 10:35:00 10:35:00 205 Medical Group 2019-12-01 2019-12-01 Max MM [place] - [id number] M at[place]or 00:00:00 00:00:00 Discovery [facility]: [facility] [address] [place] [address] , Ph. 2019-11-09 2019-11-09 Outpatient [facility] MMG MMG [id number] 200 [place] 12:09:00 12:09:00 204 Medical Group 2019-10-31 2019-10-31 Outpatient [facility] MMG MMG 2610-20 200 [place] 09:45:00 09:45:00 105 Medical Group 2019-10-22 2019-10-22 Max MM [place] - [id number] M at[place]or 00:00:00 00:00:00 Discovery Teo da PA: [address] [place], [place] [address]rda - [address] [place] [address] [place] [address] , Ph. 2019-08-25 2019-08-25 Max MM [place] - [id number] M atagor 00:00:00 00:00:00 Discovery Teo da PA: [address] [place] [address] - [address] [place] [place] [address] , Ph. 2019-07-01 2019-07-01 Max MM [place] - [id number] M at[facility]or 00:00:00 00:00:00 Discovery Teo da PA: [address] [place], [place] [address]rda - [address] [place] [address] [place] [address] , Ph. 2019-06-10 2019-06-10 Max MM [place] - [id number] M at[facility]or 00:00:00 00:00:00 Discovery Teo da PA: [address] [place] [address] - [address], [facility] [place] [address] , Ph. 2019-04-28 2019-04-28 Max VASQUEZ [place] - [id number] M at[facility]or 00:00:00 00:00:00 Discovery Teo da PA: [address] [place] [address], [place] - [address], [facility] [place] [address] , Ph. 2019-03-25 2019-03-25 Max VASQUEZ [place] - [id number] M atagor 00:00:00 00:00:00 Discovery melissa Bruce PA: [address] [place] [address], [place] - [address], [facility] [place] [address] , Ph. 2019-01-28 2019-01-28 Max VASQUEZ [place] - [id number] M atagor 00:00:00 00:00:00 Discovery melissa Bruce PA: [address] [place], [place] [address]da - [address], [facility] [place] [address] , Ph. 2018-12-24 2018-12-24 Max VASQUEZ [place] - [id number] M atagor 00:00:00 00:00:00 Discovery Teo da PA: [address] [place] [address] [address], [facility] [address] , Ph. Results Test Description Test Time Test Comments Results Result Comments Source CBC W Auto Differential panel - Blood 2021-05-16 11:00:00 Test Item Value Reference Range Interpretation Comme nts white blood count (test code = white blood count) 6.0 K/uL 4.0- 12.3 red blood count (test code = red blood count) 4.27 M/uL 3.80-5.8 0 hemoglobin (test code = hemoglobin) 13.4 g/dL 11.7-17.2 hematocrit (test code = hematocrit) 41.9 % 35.0-51.0 MCV [Entitic volume] (test code = 68371-2) 98.1 fL 83-100 mean corpuscular hemoglobin (test code = mean corpuscular 31.4 pg 26.8-33.4 hemoglobin) mean corpuscular HGB conc (test code = mean corpuscular HGB 32.0 g/ dL 30-35 conc) red cell distribution width (test code = red cell 14.1 % 12.0 -14.0 H distribution width) platelet count (test code = platelet count) 187 K/uL 175-450 mean platelet volume (test code = mean platelet volume) 10.7 fL 9.4-12.6 Segmented neutrophils/100 leukocytes in Blood (test code = 64.4 % 44.7-82.4 47775-2) Immature granulocytes [#/volume] in Blood (test code = 0.1 K/uL 0.0-0.03 H 66076-8) lymphocyte% (test code = lymphocyte%) 16.2 % 10.0-50.0 mono % (test code = mono %) 15.2 % 3.9-13.4 H eos % (test code = eos %) 2.0 % 0.0-6.4 Basophils/100 leukocytes in Unspecified specimen (test code 1.0 % 0.2-1.2 = 23648-1) Band form neutrophils [#/volume] in Blood (test code = 3.87 K/uL 1.78-5.38 42526-9) Lymphocytes [#/volume] in Unspecified specimen by Automated 1.0 K/uL 1.32-3.57 L count (test code = 71123-4) mono # (test code = mono #) 0.91 K/uL 0.30-0.82 H eos # (test code = eos #) 0.12 K/uL 0.04-0.54 basophil # (test code = basophil #) 0.06 K/uL 0.01-0.08 NRBC% (test code = NRBC%) 0 /100 WBC 0-0.2 NRBC# (test code = NRBC#) 0 K/uL [facility] 2000 [facility] - Serum or Plasma 2021-05-16 07:47:00 Test Item Value Reference Range Interpretation Comments Glucose [Mass/volume] in Serum or 99 mg/dL 82-115 Plasma (test code = 2345-7) Urea nitrogen [Mass/volume] in 30 mg/dL 8-23 H Serum or Plasma (test code = 3094-0) osmolality calculated,serum (test 284 mOsm/kg 280-300 code = osmolality calculated,serum) creatinine (test code = 1.3 mg/dL 0.70-1.20 H creatinine) glomerular filtration rate (test 52.34 L code = glomerular filtration rate) Urea nitrogen/Creatinine [Mass 23.1 12-20 H Ratio] in Serum or Plasma (test code = 3097-3) sodium level (test code = sodium 139 mmol/L 135-145 level) potassium level (test code = 4.8 mmol/L 3.5-5.2 potassium level) chloride level (test code = 106 mmol/L 98-108 chloride level) CO2 (test code = CO2) 24 mmol/L 21-32 anion gap (test code = anion gap) 13.8 mEq/L 12-20 calcium level (test code = 10.0 mg/dL 8.8-10.2 calcium level) total protein (test code = total 7.2 g/dL 6.6-8.7 protein) albumin (test code = albumin) 4.0 g/dL 3.5-5.2 globulin (test code = globulin) 3.2 gm/dL A/G ratio (test code = A/G ratio) 1.3 >1.0 bilirubin,total (test code = 0.5 mg/dL 0.0-1.2 bilirubin,total) AST/SGOT (test code = AST/SGOT) 44 U/L 15-40 H Alanine aminotransferase 25 U/L 0-41 [Enzymatic activity/volume] in Serum or Plasma (test code = 1742-6) Alkaline phosphatase [Enzymatic 69 U/L 40-130 activity/volume] in Serum or Plasma (test code = 6768-6) [facility] - Serum or [id number] 07:47:00 Test Item Value Reference Range Interpretation Comments cholesterol level (test code = 151 mg/dL 150-200 cholesterol level) triglycerides level (test code = 60 mg/dL <150 triglycerides level) HDL cholesterol (test code = HDL 47 mg/dL >55 L cholesterol) LDL cholesterol direct (test code = 95 mg/dL <100 LDL cholesterol direct) cholesterol risk ratio (test code = 3.212 cholesterol risk ratio) [facility]Pro[facility] Ag panel - Serum or [id number] 07:47:00 Test Item Value Reference Range Interpretation Comments total PSA diagnostic (test code = 0.97 NG/mL 0.0-4.00 total PSA diagnostic) free PSA % (test code = free PSA 10.30 % >25 L %) free PSA (test code = free PSA) 0.10 NG/mL [facility] CenterThyrotropin [Units/volume] in Serum or [id number] 00:00:00 Test Item Value Reference Range Interpretation Comments Thyrotropin [Units/volume] in 1.89 uIU/mL 0.36-3.74 Serum or Plasma (test code = 3016-3) [facility] CenterDifferential panel, method unspecified - [id number] 00:00:00NeutrophilsBandLymphocyteAtypical LymphMonocyteEosinophilBasophilMetamyelocyteMyelocytePromyelocyteBlastsNucleated Red Blood CellAbs Neutrophil Count (Man)Abs Lymph Count (Man)Abs Monocyte Count (Man)Abs Eosinophil Count (Man)Abs Basophil Count (Man)Platelet EstimatePlatelet MorphologyPoikilocytosisAnisocytosisMacrocytosisToxic GranulationSmudge CellsGiant PlateletsTippah County Hospital W Auto Differential panel - [id number] 06:35:00 Test Item Value Reference Range Interpretation Comments white blood count (test code = 5.8 K/uL 4.0-12.3 white blood count) red blood count (test code = red 4.77 M/uL 3.80-5.80 blood count) hemoglobin (test code = 14.4 g/dL 11.7-17.2 hemoglobin) hematocrit (test code = 46.2 % 35.0-51.0 hematocrit) MCV [Entitic volume] (test code = 96.9 fL 83-100 95521-2) mean corpuscular hemoglobin (test 30.2 pg 26.8-33.4 code = mean corpuscular hemoglobin) mean corpuscular HGB conc (test 31.2 g/dL 30-35 code = mean corpuscular HGB conc) red cell distribution width (test 14.8 % 12.0-14.0 H code = red cell distribution width) platelet count (test code = 202 K/uL 175-450 platelet count) mean platelet volume (test code = 10.7 fL 9.4-12.6 mean platelet volume) Segmented neutrophils/100 63.8 % 44.7-82.4 leukocytes in Blood (test code = 52006-3) Immature granulocytes [#/volume] 0.1 K/uL 0.0-0.03 H in Blood (test code = 17264-3) lymphocyte% (test code = 16.9 % 10.0-50.0 lymphocyte%) mono % (test code = mono %) 14.3 % 3.9-13.4 H eos % (test code = eos %) 2.9 % 0.0-6.4 Basophils/100 leukocytes in 0.9 % 0.2-1.2 Unspecified specimen (test code = 02133-0) Band form neutrophils [#/volume] 3.71 K/uL 1.78-5.38 in Blood (test code = 63553-3) Lymphocytes [#/volume] in 1.0 K/uL 1.32-3.57 L Unspecified specimen by Automated count (test code = 56749-1) mono # (test code = mono #) 0.83 K/uL 0.30-0.82 H eos # (test code = eos #) 0.17 K/uL 0.04-0.54 basophil # (test code = basophil 0.05 K/uL 0.01-0.08 #) NRBC% (test code = NRBC%) 0 /100 WBC 0-0.2 NRBC# (test code = NRBC#) 0 K/uL [facility] CenterDifferent[facility], method unspecified - [id number] 06:35:00NeutrophilsBandLymphocyteMonocyteEosinophilPlatelet EstimateMataMethodist Rehabilitation CenterThyrotropin [Units/volume] in Serum or [id number] 06:35:00 Test Item Value Reference Range Interpretation Comments Thyrotropin [Units/volume] in 3.12 uIU/mL 0.36-3.74 Serum or Plasma (test code = 3016-3) [facility] 1999 panel - Serum or Plasma 2020-07-04 06:35:00 Test Item Value Reference Range Interpretation Comments Glucose [Mass/volume] in Serum or 100 mg/dL 82-115 Plasma (test code = 2345-7) Urea nitrogen [Mass/volume] in 25 mg/dL 8-23 H Serum or Plasma (test code = 3094-0) osmolality calculated,serum (test 282 mOsm/kg 280-300 code = osmolality calculated,serum) creatinine (test code = 1.4 mg/dL 0.70-1.20 H creatinine) glomerular filtration rate (test 48.16 L code = glomerular filtration rate) Urea nitrogen/Creatinine [Mass 17.9 12-20 Ratio] in Serum or Plasma (test code = 3097-3) sodium level (test code = sodium 139 mmol/L 135-145 level) potassium level (test code = 4.5 mmol/L 3.5-5.2 potassium level) chloride level (test code = 104 mmol/L 98-108 chloride level) CO2 (test code = CO2) 25 mmol/L 21-32 anion gap (test code = anion gap) 14.5 mEq/L 12-20 calcium level (test code = 9.8 mg/dL 8.8-10.2 calcium level) total protein (test code = total 7.2 g/dL 6.6-8.7 protein) albumin (test code = albumin) 4.0 g/dL 3.5-5.2 globulin (test code = globulin) 3.2 gm/dL A/G ratio (test code = A/G ratio) 1.3 >1.0 bilirubin,total (test code = 0.4 mg/dL 0.0-1.2 bilirubin,total) AST/SGOT (test code = AST/SGOT) 61 U/L 15-40 H Alanine aminotransferase 42 U/L 0-41 H [Enzymatic activity/volume] in Serum or Plasma (test code = 1742-6) Alkaline phosphatase [Enzymatic 71 U/L 40-130 activity/volume] in Serum or Plasma (test code = 6768-6) [facility] CenterLip[facility] 1995 panel - Serum or [id number] 06:35:00 Test Item Value Reference Range Interpretation Comments cholesterol level (test code = 164 mg/dL 150-200 cholesterol level) triglycerides level (test code = 90 mg/dL <150 triglycerides level) HDL cholesterol (test code = HDL 48 mg/dL >55 L cholesterol) LDL cholesterol direct (test code = 101 mg/dL <100 LDL cholesterol direct) cholesterol risk ratio (test code = 3.416 cholesterol risk ratio) [facility] CenterProstate specific Ag panel - Serum or [id number] 06:35:00 Test Item Value Reference Range Interpretation Comments total PSA diagnostic (test code = 1.33 NG/mL 0.0-4.00 total PSA diagnostic) free PSA % (test code = free PSA 15.70 % >25 L %) free PSA (test code = free PSA) 0.21 NG/mL [facility]Com[facility] 2000 panel - Serum or Plasma 2019-10-18 07:52:00 Test Item Value Reference Range Interpretation Comments glucose (test code = glucose) 96 mg/dL 82-115 Urea nitrogen [Mass/volume] in 23 mg/dL 8-23 Serum or Plasma (test code = 3094-0) osmolality calculated,serum (test 281 mOsm/kg 280-300 code = osmolality calculated,serum) creatinine (test code = 1.4 mg/dL 0.70-1.20 H creatinine) glomerular filtration rate (test 48.16 L code = glomerular filtration rate) Urea nitrogen/Creatinine [Mass 16.4 12-20 Ratio] in Serum or Plasma (test code = 3097-3) sodium level (test code = sodium 139 mmol/L 135-145 level) Potassium [Moles/volume] in Body 4.8 mmol/L 3.5-5.2 fluid (test code = 2821-7) chloride level (test code = 103 mmol/L 98-108 chloride level) CO2 (test code = CO2) 26 mmol/L 21-32 anion gap (test code = anion gap) 14.8 mEq/L 12-20 calcium level (test code = 9.8 mg/dL 8.8-10.2 calcium level) total protein (test code = total 6.9 g/dL 6.6-8.7 protein) albumin (test code = albumin) 4.1 g/dL 3.5-5.2 globulin (test code = globulin) 2.8 gm/dL A/G ratio (test code = A/G ratio) 1.5 >1.0 bilirubin,total (test code = 0.5 mg/dL 0.0-1.2 bilirubin,total) AST/SGOT (test code = AST/SGOT) 53 U/L 15-40 H Alanine aminotransferase 35 U/L 0-41 [Enzymatic activity/volume] in Serum or Plasma (test code = 1742-6) Alkaline phosphatase [Enzymatic 73 U/L 40-130 activity/volume] in Serum or Plasma (test code = 6768-6) [facility]Lip[facility] 1996 panel - Serum or [id number] 07:52:00 Test Item Value Reference Range Interpretation Comments cholesterol level (test code = 158 mg/dL 150-200 cholesterol level) triglycerides level (test code = 88 mg/dL <150 triglycerides level) HDL cholesterol (test code = HDL 48 mg/dL >55 L cholesterol) LDL cholesterol direct (test code = 105 mg/dL <100 H LDL cholesterol direct) cholesterol risk ratio (test code = 3.291 cholesterol risk ratio) [facility] CenterHemoglobin A1c [Mass/volume] in [id number] 11:38:00 Test Item Value Reference Range Interpretation Comments Hemoglobin A1c [Mass/volume] in Blood 5.6 % 4.0-6.0 (test code = 96404-5) [facility] blood [id number] 07:51:00 Test Item Value Reference Range Interpretation Comments [facility] blood collection sent to [facility] (test code = [facility] blood collection) [facility]Com[facility] 2000 panel - Serum or Plasma 2019-04-26 05:56:00 Test Item Value Reference Range Interpretation Comments Glucose [Mass/volume] in Serum or 123 mg/dL 82-115 H Plasma (test code = 2345-7) Urea nitrogen [Mass/volume] in 20 mg/dL 8-23 Serum or Plasma (test code = 3094-0) Osmolality of Serum or Plasma 282 280-300 (test code = 2692-2) creatinine (test code = 1.2 mg/dL 0.70-1.20 creatinine) glomerular filtration rate (test 57.68 L code = glomerular filtration rate) Urea nitrogen/Creatinine [Mass 16.7 12-20 Ratio] in Serum or Plasma (test code = 3097-3) sodium level (test code = sodium 139 mmol/L 135-145 level) potassium level (test code = 4.7 mmol/L 3.5-5.2 potassium level) chloride level (test code = 103 mmol/L 98-108 chloride level) CO2 (test code = CO2) 23 mmol/L 21-32 anion gap (test code = anion gap) 17.7 mEq/L 12-20 calcium level (test code = calcium 9.3 mg/dL 8.8-10.2 level) total protein (test code = total 7.0 g/dL 6.6-8.7 protein) albumin (test code = albumin) 3.9 g/dL 3.5-5.2 globulin (test code = globulin) 3.1 gm/dL A/G ratio (test code = A/G ratio) 1.3 >1.0 bilirubin,total (test code = <0.3 0.0-1.2 bilirubin,total) AST/SGOT (test code = AST/SGOT) 39 U/L 15-40 Alanine aminotransferase 26 U/L 0-41 [Enzymatic activity/volume] in Serum or Plasma (test code = 1742-6) Alkaline phosphatase [Enzymatic 78 U/L 40-130 activity/volume] in Serum or Plasma (test code = 6768-6) [facility] 1996 panel - Serum or [id number] 06:13:00 Test Item Value Reference Range Interpretation Comments cholesterol level (test code = 143 mg/dL 150-200 L cholesterol level) triglycerides level (test code = 78 mg/dL <150 triglycerides level) HDL cholesterol (test code = HDL 50 mg/dL >55 L cholesterol) LDL cholesterol direct (test code = 83 mg/dL <100 LDL cholesterol direct) cholesterol risk ratio (test code = 2.860 cholesterol risk ratio) [facility] CenterThyrotropin [Units/volume] in Serum or [id number] 06:13:00 Test Item Value Reference Range Interpretation Comments Thyrotropin [Units/volume] in 3.30 uIU/mL 0.36-3.74 Serum or Plasma (test code = 3016-3) [facility] CenterB-[facility] Natriuretic [id number] 12:18:00 Test Item Value Reference Range Interpretation Comments B-Type Natriuretic Peptide (test 114.3 pg/mL 0.0-100.0 H code = 200505) Lipid [id number] 23:52:00 Test Item Value Reference Range Interpretation Comments Cholesterol (test 151 mg/dL 0-200 N code = CHOL) Triglycerides (test 111 mg/dL 9-200 N code = TRIG) HDL (test code = 44 mg/dL 40-60 N HDL) Chol/HDL (test code 3.4 Ratio 0.0-5.0 N = CHOLPHDL) LDL, Calculated 85 mg/dL 0-130 N (NOTE)RISK O F HEART (test code = LDLC) DISEASEPu blished by Serbian Heart AssociationAnal yte Optimal Boderli ne Increased RiskC HOL <200 200-239 >240TR IG <150 150-199 >200HDL Male: >60 <40HDL Fema le: >60 <50LDL <100 130 -159 >160LDL NEAR OP TIMAL IS 100-129 VLDL (test code = 22 mg/dL 5-40 N VLDL) LDL/HDL (test code = 2 LDLPHDL) Comprehensive Metabolic [id number] 23:52:00 Test Item Value Reference Range Interpretation Comments Sodium (test code = 140 mmol/L 135-145 N NA) Potassium (test 4.4 mmol/L 3.5-5.1 N code = K) Chloride (test code 106 mmol/L 98-105 H = CL) Carbon Dioxide 25 mmol/L 22-29 N (test code = CO2) Glucose (test code 95 mg/dL 70-115 N = GLU) Blood Urea Nitrogen 21 mg/dL 8-23 N (test code = BUN) Creatinine (test 1.0 mg/dL 0.7-1.2 N code = CREAT) Calcium (test code 9.7 mg/dL 8.3-10.5 N = CA) Prot Total (test 6.9 g/dL 6.4-8.3 N code = TP) Albumin (test code 4.2 g/dL 3.5-5.2 N = ALB) A/G Ratio (test 1.6 Ratio code = AGRATIO) Globulin (test code 2.7 2.9-3.1 L = GLOB) Bili Total (test 0.4 mg/dL 0.1-0.9 N code = TBIL) Alk Phos (test code 60 U/L 40-129 N = APHOS) AST (test code = 32 U/L 1-40 N AST) ALT (test code = 17 U/L 1-41 N ALT) BUN/Creatinine 21.0 Ratio (test code = BCRATIO) Anion Gap (test 9 mmol/L 7-16 N code = AGAP) Estimated GFR (test >60 eGFR (es timated code = GFR) mL/min/1.73m2 Glomerular Marcellus tration Rate) is an est imated value,calculate d from the patient's s lorie creatinine usin g the MDRD equation.I t is NOT the patient 's actual GFR. The eGFR provides a more clinicallyusefu l measure of kidn ey disease than se rum creatinine alone.This calculation ang es sex and race into account, if the informationis provided. If th e race is not provided , and the patient isAfrican-Ameri can, multiply by 1.2 12. If sex is not prov ided, and thepatient is female, multipl y by 0.742. Results for patients <18 ye ars ofage have not been validated by th e MDRD study and shoul d be interpretedwith caution.eGFR Re sult Interpretation: eGFR > or = 60 is in t he Normal RangeeGF R < 60 may mean kidney diseaseeGFR < 1 5 may mean kidney failureRange s recommended by the National Kidney Foundation,http ://nkd ep.nih.gov CBC with [id number] 23:32:00 Test Item Value Reference Range Interpretation Comments WBC (test code = WBC) 7.6 K/cumm 4.4-10.5 N RBC (test code = RBC) 4.82 M/cumm 4.10-5.70 N Hemoglobin (test code = HGB) 14.3 gm/dL 13.4-17.4 N Hematocrit (test code = HCT) 44.2 % 38.7-52.0 N MCV (test code = MCV) 91.7 fL 80-100 N MCH (test code = MCH) 29.6 pg 27.0-32.5 N MCHC (test code = MCHC) 32.3 g/dL 32.0-37.5 N RDW (test code = RDW) 15.1 % 11.5-14.5 H Platelet Count (test code = 173 K/cumm 140-440 N PLTCT) MPV (test code = MPV) 13.1 fL Diff Method (test code = DIFFM) Auto Neutrophil (test code = NEUT) 59.1 % 36-70 N Lymphocyte (test code = LYMPH) 27.0 % 12-44 N Monocyte (test code = MONO) 11.3 % 0-11 H Eosinophil (test code = EOS) 2.1 % 0-7 N Basophil (test code = BASO) 0.6 % 0-2 N Neutro Abs (test code = ANEUT) 4.5 K/cumm 1.6-7.4 N Lymph Abs (test code = ALYMPH) 2.0 K/cumm 0.5-4.6 N Gilmer Abs (test code = AMONO) 0.9 K/cumm 0.0-1.2 N Eos Abs (test code = AEOS) 0.16 K/cumm 0.00-0.74 N Baso Abs (test code = ABASO) 0.1 K/cumm 0.00-0.21 N
--- NOTE | 2022-06-07 10:22 | EDPHYS ---
Physician Documentation [facility] Name: Yasmany Ambriz Age: 86 yrs Sex: Male : 1935 Arrival Date: 06/07/2022 Time: 10:14 Bed Waiting Private MD: ED Physician Neymar Plascencia HPI: 06/07 10:23 The patient has a laceration Mechanical fall to scrape L elbow. The laceration(s) jr11 is(are) located on the L elbow. Onset: The symptoms/episode began/occurred 12 hrs. Associated signs and symptoms: The patient has no apparent associated signs or symptoms, Pertinent negatives:. Denies any other injuries, no LOC, ho head injury . Historical: - Allergies: 10:23 Dilaudid; jl7 - PMHx: 10:23 Hypertension; Hypercholesterolemia; jl7 - Immunization history:: Adult Immunizations up to date. - Social history:: Smoking status: Patient denies any tobacco usage or history of. ROS: 10:23 All other systems are negative. jr11 Exam: 10:23 Constitutional: This is a well developed, well nourished patient who is awake, alert, jr11 and in no acute distress. Head/Face: Normocephalic, atraumatic. Eyes: Extra-ocular motions intact. Lids and lashes normal. Conjunctiva and sclera are non-icteric and not injected. Cornea within normal limits. Periorbital areas with no swelling, redness, or edema. ENT: Nares patent. No nasal discharge, no septal abnormalities noted. Oropharynx with no redness, swelling, or masses, exudates, or evidence of obstruction, uvula midline. Mucous membranes moist. Neck: Trachea midline, no thyromegaly or masses palpated, and no cervical lymphadenopathy. Supple, full range of motion without nuchal rigidity, or vertebral point tenderness. No Meningismus. Chest/axilla: Normal chest wall appearance and motion. Nontender with no deformity. No lesions are appreciated. Respiratory: Lungs have equal breath sounds bilaterally, clear to auscultation and percussion. No rales, rhonchi or wheezes noted. No increased work of breathing, no retractions or nasal flaring. Abdomen/GI: Soft, non-tender, with normal bowel sounds. No distension or tympany. No guarding or rebound. No evidence of tenderness throughout. Skin: 3x4 cm L elbow skin tear no surrounding cellulitis, N/V intact distally Vital Signs: 10:21 BP 131 / 71; Pulse 58; Resp 17; Temp 97.9; Pulse Ox 99% on R/A; Weight 63.5 kg; Height jl7 5 ft. 6 in. (167.64 cm); Pain 0/10; 10:21 Body Mass Index 22.60 (63.50 kg, 167.64 cm) jl7 MDM: 10:21 Patient medically screened. jr11 10:23 Differential diagnosis: superficial laceration, skin tear. Data reviewed: vital signs, jr11 nurses notes. ED course: Patient is an 86-year-old male with a skin tear, no evidence of infection, will continue local wound care.. 06/07 10:20 Order name: Wound dressing; Complete Time: 10:31 jr11 Administered Medications: 10:31 Drug: Neosporin (sffxbgwk-gpnigobmqe-ijkhdhaez) Ointment 1 application Route: Topical; 7 Site: affected area; 10:31 Follow up: Response: Medication administered at discharge. jl7 Disposition Summary: 06/07/22 10:21 Discharge Ordered Location: Home jr Condition: Stable jr Diagnosis - L elbow skin tear jr11 Discharge Instructions: - Discharge Summary Sheet jr11 - Skin Tear jr Forms: - Medication Reconciliation Form jr11 - Thank You Letter jr11 - Antibiotic Education jr11 - Prescription Opioid Use jr11 Prescriptions: - mupirocin 2 % Topical ointment - apply 1 application by TOPICAL route 2 times per day; 22 gram; Refills: 0, jr11 Product Selection Permitted Signatures: Maryanne Mccullough RN RN jl7 Neymar Plascencia MD MD jr11
--- NOTE | 2022-06-07 10:33 | ER ---
Nurse's Notes [facility] Name: Yasmany Ambriz Age: 86 yrs Sex: Male : 1935 Arrival Date: 06/07/2022 Time: 10:14 Bed Waiting Private MD: Diagnosis: L elbow skin tear Presentation: 06/07 10:21 Chief complaint: Patient states: Fell yesterday and have a skin tear to left elbow, jl7 denies pain, ROM intact. Coronavirus screen: At this time, the client does not indicate any symptoms associated with coronavirus-19. Ebola Screen: No symptoms or risks identified at this time. Complicating Factors: There are no complicating factors for this patient. Initial Sepsis Screen: Does the patient meet any 2 criteria? No. Patient's initial sepsis screen is negative. Does the patient have a suspected source of infection? No. Patient's initial sepsis screen is negative. Risk Assessment: Do you want to hurt yourself or someone else? Patient reports no desire to harm self or others. Onset of symptoms was June 06, 2022 at 12:00. Care prior to arrival: None. 10:21 Method Of Arrival: Ambulatory jl7 10:21 Acuity: SEEMA 5 jl7 Triage Assessment: 10:23 General: Appears in no apparent distress. uncomfortable, Behavior is calm, cooperative, jl7 appropriate for age. Pain: Denies pain. Injury Description: Laceration is bleeding no active bleeding noted. Historical: - Allergies: 10:23 Dilaudid; jl7 - PMHx: 10:23 Hypertension; Hypercholesterolemia; jl7 - Immunization history:: Adult Immunizations up to date. - Social history:: Smoking status: Patient denies any tobacco usage or history of. Screenin:31 Abuse screen: Denies threats or abuse. Denies injuries from another. Nutritional jl7 screening: No deficits noted. Tuberculosis screening: No symptoms or risk factors identified. Fall Risk Fall in past 12 months (25 points). Total Childress Fall Scale indicates No Risk (0-24 pts). Assessment: 10:15 Reassessment: ERD in triage assessing pt and discussing POC. jl7 Vital Signs: 10:21 BP 131 / 71; Pulse 58; Resp 17; Temp 97.9; Pulse Ox 99% on R/A; Weight 63.5 kg; Height jl7 5 ft. 6 in. (167.64 cm); Pain 0/10; 10:21 Body Mass Index 22.60 (63.50 kg, 167.64 cm) jl7 ED Course: 10:14 Patient arrived in ED. rg4 10:14 Neymar Plascencia MD is Attending Physician. jr11 10:15 Patient has correct armband on for positive identification. jl7 10:23 Triage completed. jl7 10:23 Arm band placed on right wrist. jl7 10:32 No provider procedures requiring assistance completed. Patient did not have IV access jl7 during this emergency room visit. Administered Medications: 10:31 Drug: Neosporin ([id number]) Ointment 1 application Route: Topical; jl7 Site: affected area; 10:31 Follow up: Response: Medication administered at discharge. jl7 Medication: 10:31 VIS not applicable for this client. jl7 Outcome: 10:21 Discharge ordered by . jr11 10:32 Discharged to home ambulatory. jl7 10:32 Condition: stable 10:32 Discharge instructions given to patient, Instructed on discharge instructions, follow up and referral plans. medication usage, Demonstrated understanding of instructions, follow-up care, medications, Prescriptions given X 1. 10:32 Patient left the ED. jl7 Signatures: Lexi Herrmann rg4 Maryanne Mccullough RN RN jl7 Neymar Plascencia MD MD jr11
[2022-06-07 11:01] VITALS: BP 131/71; TEMP 97.9; O2SAT 99
== END 2022-06-07 10:32 | disposition home or self-care (01) ==
LOC: ER 10:12
DX: S51.012A Laceration without foreign body of left elbow, initial encounter (principal); I10 Essential (primary) hypertension; Z88.8 Allergy status to other drugs, medicaments and biological substances
CPT/HCPCS: 99283

== ENCOUNTER 2022-06-12 10:59 | Emergency (ER) | payer OTHER ==
--- OUTSIDE RECORDS SUMMARY | 2022-06-12 11:04 | XMS REPORT | Continuity of Care Document ---
:1935 Author Organization [facility] t Address [address] [place] [address] [address]. Aleman [address] [place] [address] Care Team Providers Name Role Phone Teo Attending Clinician Unavailable ANH VALDEZ Attending Clinician Unavailable Teo Admitting Clinician Unavailable ANH VALDEZ Admitting Clinician Unavailable Payers Payer Name Policy Type Policy Number Effective Date Expiration Date Chapin BRYANT (MEDICARE [id number] 2021 REPLACEMENT PPO) 00:00:00 Problems Condition Condition [...] Clinician Dilaudid Allergy Active [facility] Metoprol Allergy Active Itching [facility] Social History Smoking Status Start Date Stop Date Source Former Smoker [facility] Medications Ordered Filled Start [...] Date Status Commen ts Source Name Name COVID-19 mRNA, COVID-19, mRNA, 2020-12-30 Completed Schmidt belia LNP-S, PF, 100 LNP-S, PF, 100 00:00:00 Medica l Group mcg/0.5 mL dose mcg/0.5 mL dose (Moderna) (Moderna) COVID-19, mRNA, COVID-19, mRNA, 2020-12-02 Completed Schmidt belia LNP-S, PF, 100 LNP-S, PF, 100 00:00:00 Medica l Group mcg/0.5 mL dose mcg/0.5 mL dose (Moderna) (Moderna) influenza, influenza, 2018-08-12 Completed [facility] injectable, injectable, 00:00:00 Medical Grou p quadrivalent quadrivalent pneumococcal pneumococcal 2017-08-29 Completed [facility] conjugate PCV 13 conjugate PCV 13 10:56:00 [facility] Group influenza, high dose influenza, high dose 2017-08-29 Completed [facility] seasonal seasonal 10:55:00 Medical Group influenza, high dose influenza, high dose 2016-08-08 Completed [facility] seasonal seasonal 10:20:00 Medical Group influenza, high dose influenza, high dose 2015-08-10 Completed [facility] seasonal seasonal 10:40:00 Medical Group influenza, influenza, 2014-07-28 Completed [facility] injectable, injectable, 11:29:24 Medical Grou p quadrivalent quadrivalent influenza, high dose influenza, high dose 2013-08-09 Completed [facility] seasonal seasonal 00:00:00 Medical Group influenza, seasonal, influenza, seasonal, 2012-09-29 Completed [facility] injectable injectable 00:00:00 Medical Group influenza, influenza, 2011-10-27 Completed [facility] injectable, injectable, 00:00:00 Medical Grou p quadrivalent, quadrivalent, preservative free preservative free pneumococcal pneumococcal 2009-10-27 Completed [facility] polysaccharide PPV23 polysaccharide PPV23 00:00:00 Medical Group Vital Signs Vital Name Observation Time Observation Value Comments Source BP Diastolic 2022-04-12 00:00:00 74 mm[Hg] [facility] Height 2022-04-12 00:00:00 66 [in_i] [facility] BMI (Body Mass 2022-04-12 00:00:00 23.6 kg/m2 [facility]) Group BP Systolic 2022-04-12 00:00:00 128 mm[Hg] [facility] Body Weight 2022-04-12 00:00:00 2336 [oz_av] [facility] BP Diastolic 2021-12-13 00:00:00 75 mm[Hg] [facility] Height 2021-12-13 00:00:00 66 [in_i] [facility] BMI (Body Mass 2021-12-13 00:00:00 23.1 kg/m2 [facility]) Group BP Systolic 2021-12-13 00:00:00 132 mm[Hg] [facility] Body Weight 2021-12-13 00:00:00 2288 [oz_av] [facility] BP Diastolic 2021-09-13 00:00:00 79 mm[Hg] [facility] Height 2021-09-13 00:00:00 66 [in_i] [facility] BMI (Body Mass 2021-09-13 00:00:00 23.6 kg/m2 [facility]) Group BP Systolic 2021-09-13 00:00:00 135 mm[Hg] [facility] Body Weight 2021-09-13 00:00:00 2336 [oz_av] [facility] BP Diastolic 2021-05-17 00:00:00 82 mm[Hg] [facility] Height 2021-05-17 00:00:00 66 [in_i] [facility] BMI (Body Mass 2021-05-17 00:00:00 23.4 kg/m2 [facility]) Group BP Systolic 2021-05-17 00:00:00 139 mm[Hg] [facility] Body Weight 2021-05-17 00:00:00 2320 [oz_av] [facility] Height 2020-08-17 00:00:00 66 [in_i] [facility] BMI (Body Mass 2020-08-17 00:00:00 23.4 kg/m2 [facility] Body Weight 2020-08-17 00:00:00 2320 [oz_av] [facility] BP Diastolic 2020-07-05 00:00:00 75 mm[Hg] [facility] Height 2020-07-05 00:00:00 66 [in_i] [facility] BMI (Body Mass 2020-07-05 00:00:00 23.4 kg/m2 [facility] BP Systolic 2020-07-05 00:00:00 126 mm[Hg] [facility] Body Weight 2020-07-05 00:00:00 2320 [oz_av] [facility] BP Diastolic 2020-04-05 00:00:00 77 mm[Hg] [facility] Height 2020-04-05 00:00:00 66 [in_i] [facility] BMI (Body Mass 2020-04-05 00:00:00 23.6 kg/m2 [facility] BP Systolic 2020-04-05 00:00:00 128 mm[Hg] [facility] Body Weight 2020-04-05 00:00:00 2336 [oz_av] [facility] BP Diastolic 2019-12-01 00:00:00 85 mm[Hg] [facility] Height 2019-12-01 00:00:00 66 [in_i] [facility] BMI (Body Mass 2019-12-01 00:00:00 24.4 kg/m2 [facility] BP Systolic 2019-12-01 00:00:00 140 mm[Hg] [facility] Body Weight 2019-12-01 00:00:00 2416 [oz_av] [facility] BP Diastolic 2019-10-22 00:00:00 64 mm[Hg] [facility] Height 2019-10-22 00:00:00 66 [in_i] [facility] BMI (Body Mass 2019-10-22 00:00:00 23.9 kg/m2 [facility] BP Systolic 2019-10-22 00:00:00 114 mm[Hg] [facility] Body Weight 2019-10-22 00:00:00 2369.6 [oz_av] [facility] BP Diastolic 2019-08-25 00:00:00 74 mm[Hg] [facility] Height 2019-08-25 00:00:00 66 [in_i] [facility] BMI (Body Mass 2019-08-25 00:00:00 23.4 kg/m2 [facility] BP Systolic 2019-08-25 00:00:00 139 mm[Hg] [facility] Body Weight 2019-08-25 00:00:00 2324 [oz_av] [facility] BP Diastolic 2019-07-01 00:00:00 67 mm[Hg] [facility] Height 2019-07-01 00:00:00 66 [in_i] [facility] BMI (Body Mass 2019-07-01 00:00:00 23.1 kg/m2 [facility] BP Systolic 2019-07-01 00:00:00 126 mm[Hg] [facility] Body Weight 2019-07-01 00:00:00 2286.4 [oz_av] [facility] BP Diastolic 2019-06-10 00:00:00 68 mm[Hg] [facility] Height 2019-06-10 00:00:00 66 [in_i] [facility] BMI (Body Mass 2019-06-10 00:00:00 23 kg/m2 [facility] BP Systolic 2019-06-10 00:00:00 133 mm[Hg] [facility] Body Weight 2019-06-10 00:00:00 2281.6 [oz_av] [facility] BP Diastolic 2019-04-28 00:00:00 68 mm[Hg] [facility] Height 2019-04-28 00:00:00 66 [in_i] [facility] BMI (Body Mass 2019-04-28 00:00:00 22.8 kg/m2 [facility] BP Systolic 2019-04-28 00:00:00 126 mm[Hg] [facility] Body Weight 2019-04-28 00:00:00 2260.8 [oz_av] [facility] BP Diastolic 2019-03-25 00:00:00 75 mm[Hg] [facility] Height 2019-03-25 00:00:00 66 [in_i] [facility] BMI (Body Mass 2019-03-25 00:00:00 22.7 kg/m2 [facility] BP Systolic 2019-03-25 00:00:00 142 mm[Hg] [facility] Body Weight 2019-03-25 00:00:00 2246.4 [oz_av] [facility] BP Diastolic 2019-01-28 00:00:00 69 mm[Hg] [facility] Height 2019-01-28 00:00:00 66 [in_i] [facility] BMI (Body Mass 2019-01-28 00:00:00 22.7 kg/m2 [facility] BP Systolic 2019-01-28 00:00:00 128 mm[Hg] [facility] Body Weight 2019-01-28 00:00:00 2249.6 [oz_av] [facility] BP Diastolic 2018-12-24 00:00:00 79 mm[Hg] [facility] Height 2018-12-24 00:00:00 66 [in_i] [facility] BMI (Body Mass 2018-12-24 00:00:00 23.8 kg/m2 [facility] BP Systolic 2018-12-24 00:00:00 119 mm[Hg] [facility] Body Weight 2018-12-24 00:00:00 2356.8 [oz_av] [facility] Procedures Procedure Date / Time Performing Clinician Source Performed XR, foot, 2 view 2019-12-01 00:00:00 Mary Fang [facility] unlisted imaging order 2019-06-10 00:00:00 [facility] ECG WITH INTERPRETATION 12 2018-12-16 00:00:00 Leoncio gao [facility] LEADS Group Colonoscopy 2015-08-28 00:00:00 [facility] Cardiac Surgery 2014-12-20 00:00:00 [facility] Pac[facility] Cholecystectomy [facility] Hernia Repair [facility] Thyroid Surgery [facility]onsillectomy [facility] Partial Resection of Colon [facility] Plan of Care Planned Activity Planned Date Details Comments Source Diagnostic Test 2022-04-12 vitamin D, [facility] Pending 00:00:00 25-hydroxy, total, Group serum [code = vitamin D, 25-hydroxy, total, serum] Diagnostic Test 2022-04-12 lipid panel, serum [facility] Pending 00:00:00 [code = lipid [...] or plasma] Diagnostic Test 2022-04-12 BNP (B-type [facility] Pending 00:00:00 natriuretic Group peptide), serum or plasma [code = BNP (B-type natriuretic peptide), serum or plasma] Future Appointment 2022-08-23 Max Bruce, [facility] 09:[facility]00 [facility] [address]; , [place] [address] Instructions [facility] Encounters Start End Encounter Admission Attending Care Care Encounter Source Date/Time Date/Time Type Type Clinicians Facility Department ID 2022-04-12 2022-04-12 Outpatient Teo VASQUEZ [facility] [id number] 220 [facility] 09:51:00 09:51:00 617 [facility] 2022-04-12 2022-04-12 Outpatient Teo VASQUEZ [facility] 2610-20 220 [facility] 09:51:00 09:51:00 623 [facility] 2022-04-12 2022-04-12 Outpatient Ambeaux [facility] [id number] 220 [place] 09:51:00 09:51:00 626 [facility] 2022-04-12 2022-04-12 Max MMG [place] - [id number] M at[facility] 00:00:00 00:00:00 Discovery Teo da PA: [address] [place] [address] , Ph. 2021-12-17 2021-12-17 Outpatient Ambeaux [facility] MMG 2610-20 220 [facility] 08:11:00 08:11:00 610 [facility] 2021-12-13 2021-12-13 Outpatient Am[facility]aux [facility]G MMG 2610-20 220 [place] 10:03:00 10:03:00 217 [facility] 2021-12-13 2021-12-13 Outpatient Ambeaux [facility]G MMG 2610-20 220 [facility] 10:03:00 10:03:00 221 [facility] 2021-12-13 2021-12-13 Max MMG [place] - [id number] M [facility] 00:00:00 00:00:00 Discovery Teo da PA: [address] [place] [address] , Ph. 2021-09-27 2021-09-27 Outpatient Ambeaux MMG MMG 2610-20 220 [facility] 02:30:00 02:30:00 216 [facility] 2021-09-13 2021-09-13 Outpatient Ambeaux MMG MMG 2610-20 211 [facility] 10:21:00 10:21:00 122 [facility] 2021-09-13 2021-09-13 Outpatient Ambeaux MMG MMG 2610-20 211 [facility] 10:21:00 10:21:00 118 [facility] 2021-09-13 2021-09-13 Max MMG [place] - [id number] M [facility] 00:00:00 00:00:00 Discovery Teo da PA: 600 [facility] [address], [facility] [place] [address] , Ph. 2021-07-19 2021-07-19 Outpatient Ambeaux MMG MMG 2610-20 210 [facility] 04:30:00 04:30:00 923 [facility] 2021-05-17 2021-05-17 Outpatient Ambeaux MMG MMG 2610-20 210 [facility] 05:19:00 05:19:00 722 [facility] 2021-05-17 2021-05-17 Outpatient Ambeaux MMG MMG 2610-20 210 [place] 05:19:00 05:19:00 811 [facility] 2021-05-17 2021-05-17 Max MM [place] - [id number] M at[facility] 00:00:00 00:00:00 Teo Discovery da PA: 600 [facility] [address], [facility] [place] [address] , Ph. 2020-09-04 2020-09-04 Outpatient Am[facility]aux MMG [...] 026 [facility] 2020-08-17 2020-08-17 Max MM [place] - [id number] M [facility] 00:00:00 00:00:00 Discovery Teo da PA: 600 [facility] [address] [place] [address] , Ph. 2020-07-14 2020-07-14 Outpatient Am[facility]aux MMG MMG 2610-20 200 [facility] 12:19:00 12:19:00 928 [facility] 2020-07-14 2020-07-14 Outpatient Am[facility]aux MMG MMG 2610-20 201 [facility] 12:19:00 12:19:00 020 [facility] 2020-07-05 2020-07-05 Outpatient Am[facility]aux MMG MMG 2610-20 200 [facility] 08:28:00 08:28:00 909 [facility] Group 2020-07-05 2020-07-05 Max MMG [place] - [id number] M [facility] 00:00:00 00:00:00 Discovery Teo da PA: 600 [facility] [address] [place] [address] , Ph. 2020-04-14 2020-04-14 Outpatient Am[facility]aux MMG MMG 2610-20 200 [facility] 11:47:00 11:47:00 721 [facility] 2020-04-14 2020-04-14 Outpatient Ambeaux MMG MMG 2610-20 200 [facility] 11:47:00 11:47:00 908 [facility] 2020-04-05 2020-04-05 Outpatient Am[facility]aux MMG MMG 2610-20 200 [place] 07:23:00 07:23:00 610 [facility] 2020-04-05 2020-04-05 Max MMG [place] - [id number] M [facility] 00:00:00 00:00:00 Discovery Teo da PA: 600 [facility] - [address] [place] [address] , Ph. 2019-12-10 2019-12-10 Outpatient Am[facility]aux MMG MMG [id number] 200 [place] 11:56:00 11:56:00 507 Medical Group 2019-12-10 2019-12-10 Outpatient Ambeaux MMG MMG 2610-20 200 [place] 11:56:00 11:56:00 609 [facility] 2019-12-01 2019-12-01 Outpatient Ambeaux MMG MMG [id number] 200 [place] 10:35:00 10:35:00 205 Medical Group 2019-12-01 2019-12-01 Max MM [place] - [id number] M [facility] 00:00:00 00:00:00 Discovery Teo da PA: 600 [facility] [address], [facility] [place] [address] , Ph. 2019-11-09 2019-11-09 Outpatient Am[facility]aux MMG MMG 2610-20 200 [place] 12:09:00 12:09:00 204 Medical Group 2019-10-31 2019-10-31 Outpatient Ambeaux MMG MMG 2610-20 200 [facility] 09:45:00 09:45:00 105 Medical Group 2019-10-22 2019-10-22 Max MM [place] - [id number] M [facility] 00:00:00 00:00:00 Discovery Teo da PA: [address] [place], [place] [address]rda - [address], [facility] [place] [address] , Ph. 2019-08-25 2019-08-25 Max MM [place] - [id number] M [facility] 00:00:00 00:00:00 Discovery Teo da PA: [address] [place], [place] [address]rda - [address], [facility] [place] [address] , Ph. 2019-07-01 2019-07-01 Max MM [place] - [id number] M [facility] 00:00:00 00:00:00 Discovery Teo da PA: [address] [place], [place] [address]rda - [address], [facility] [place] [address] , Ph. 2019-06-10 2019-06-10 Max MM [place] - [id number] M [facility] 00:00:00 00:00:00 Discovery Teo da PA: [address] [place] [address] - [address], [facility] [place] [address] , Ph. 2019-04-28 2019-04-28 Max CEVALLOS [place] - [id number] M at[facility]or 00:00:00 00:00:00 Discovery Teo da PA: [address] [place] [address] [address], [facility] [place] [address] , Ph. 2019-03-25 2019-03-25 Max CEVALLOS [place] - [id number] M [facility] 00:00:00 00:00:00 Discovery Teo da PA: [address] [place] [address] - Suite [facility], [facility] [place] [address] , Ph. 2019-01-28 2019-01-28 Max CEVALLOS [place] - [id number] M [facility] 00:00:00 00:00:00 Discovery Teo da PA: [address] [place] [address] - [address] [place] [address] , Ph. 2018-12-24 2018-12-24 Max CEVALLOS [place] - [id number] M [facility] 00:00:00 00:00:00 Discovery Teo da PA: [address] [place] [address] , Ph. Results Test Description Test Time [...] 35.0-51.0 MCV [Entitic volume] (test code = 63136-3) 98.1 fL 83-100 mean corpuscular hemoglobin (test [...] Blood (test code = 64.4 % 44.7-82.4 77688-8) Immature granulocytes [#/volume] in Blood (test code = 0.1 K/uL 0.0-0.03 H 93383-0) lymphocyte% (test code = lymphocyte%) 16.2 % 10.0-50.0 mono % (test code = mono %) 15.2 % 3.9-13.4 H eos % (test code = eos %) 2.0 % 0.0-6.4 Basophils/100 leukocytes in Unspecified specimen (test code 1.0 % 0.2-1.2 = 59367-1) Band form neutrophils [#/volume] in Blood (test code = 3.87 K/uL 1.78-5.38 05576-6) Lymphocytes [#/volume] in Unspecified specimen by Automated 1.0 K/uL 1.32-3.57 L count (test code = 30572-0) mono # (test code = mono #) 0.91 K/uL 0.30-0.82 H eos # (test code = eos #) 0.12 K/uL 0.04-0.54 basophil # (test code = basophil #) 0.06 K/uL 0.01-0.08 NRBC% (test code = NRBC%) 0 /100 WBC 0-0.2 NRBC# (test code = NRBC#) 0 K/uL [facility] panel - Serum or Plasma [...] Serum or Plasma (test code = 6768-6) [facility] 1996 panel - Serum or [id number] 07:47:00 Test Item Value Reference Range Interpretation Comments cholesterol level (test code = 151 mg/dL 150-200 cholesterol level) triglycerides level (test code = 60 mg/dL <150 triglycerides level) HDL cholesterol (test code = HDL 47 mg/dL >55 L cholesterol) LDL cholesterol direct (test code = 95 mg/dL <100 LDL cholesterol direct) cholesterol risk ratio (test code = 3.212 cholesterol risk ratio) [facility] Ag panel - Serum or [id number] 07:47:00 Test Item Value Reference Range Interpretation Comments total PSA diagnostic (test code = 0.97 NG/mL 0.0-4.00 total PSA diagnostic) free PSA % (test code = free PSA 10.30 % >25 L %) free PSA (test code = free PSA) 0.10 NG/mL [facility] [Units/volume] in Serum or [id number] 00:00:00 Test Item Value Reference Range Interpretation Comments Thyrotropin [Units/volume] in 1.89 uIU/mL 0.36-3.74 Serum or Plasma (test code = 3016-3) [facility] panel, method unspecified - [id number] 00:00:00NeutrophilsBandLymphocyteAtypical LymphMonocyteEosinophilBasophilMetamyelocyteMyelocytePromyelocyteBlastsNucleated Red Blood CellAbs Neutrophil Count (Man)Abs Lymph Count (Man)Abs Monocyte Count (Man)Abs Eosinophil Count (Man)Abs Basophil Count (Man)Platelet EstimatePlatelet MorphologyPoikilocytosisAnisocytosisMacrocytosisToxic GranulationSmudge CellsGiant PlateletsLawrence County Hospital W Auto Differential panel - [id number] 06:35:00 Test Item Value Reference Range Interpretation Comments white blood count (test code = 5.8 K/uL 4.0-12.3 white blood count) red blood count (test code = red 4.77 M/uL 3.80-5.80 blood count) hemoglobin (test code = 14.4 g/dL 11.7-17.2 hemoglobin) hematocrit (test code = 46.2 % 35.0-51.0 hematocrit) MCV [Entitic volume] (test code = 96.9 fL 83-100 75067-0) mean corpuscular hemoglobin (test 30.2 pg 26.8-33.4 [...] 44.7-82.4 leukocytes in Blood (test code = 30878-9) Immature granulocytes [#/volume] 0.1 K/uL 0.0-0.03 H in Blood (test code = 10000-0) lymphocyte% (test code = 16.9 % 10.0-50.0 lymphocyte%) mono % (test code = mono %) 14.3 % 3.9-13.4 H eos % (test code = eos %) 2.9 % 0.0-6.4 Basophils/100 leukocytes in 0.9 % 0.2-1.2 Unspecified specimen (test code = 90231-0) Band form neutrophils [#/volume] 3.71 K/uL 1.78-5.38 in Blood (test code = 69232-3) Lymphocytes [#/volume] in 1.0 K/uL 1.32-3.57 L Unspecified specimen by Automated count (test code = 11825-8) mono # (test code = mono #) 0.83 K/uL 0.30-0.82 H eos # (test code = eos #) 0.17 K/uL 0.04-0.54 basophil # (test code = basophil 0.05 K/uL 0.01-0.08 #) NRBC% (test code = NRBC%) 0 /100 WBC 0-0.2 NRBC# (test code = NRBC#) 0 K/uL [facility] GroupDifferential panel, method unspecified - [id number] 06:35:00NeutrophilsBandLymphocyteMonocyteEosinophilPlatelet EstimateMatagotippah county hospital Medical GroupThyrotropin [Units/volume] in Serum or [id number] 06:35:00 Test Item Value Reference Range Interpretation Comments Thyrotropin [Units/volume] in 3.12 uIU/mL 0.36-3.74 Serum or Plasma (test code = 3016-3) [facility] 1999 panel - Serum or Plasma [...] Serum or Plasma (test code = 6768-6) [facility] 1995 panel - Serum or [id number] 06:35:00 Test Item Value Reference Range Interpretation Comments cholesterol level (test code = 164 mg/dL 150-200 cholesterol level) triglycerides level (test code = 90 mg/dL <150 triglycerides level) HDL cholesterol (test code = HDL 48 mg/dL >55 L cholesterol) LDL cholesterol direct (test code = 101 mg/dL <100 LDL cholesterol direct) cholesterol risk ratio (test code = 3.416 cholesterol risk ratio) [facility]Pro[facility] specific Ag panel - Serum or [id number] 06:35:00 Test Item Value Reference Range Interpretation Comments total PSA diagnostic (test code = 1.33 NG/mL 0.0-4.00 total PSA diagnostic) free PSA % (test code = free PSA 15.70 % >25 L %) free PSA (test code = free PSA) 0.21 NG/mL [facility]Com[facility] 2000 panel - Serum or Plasma [...] Serum or Plasma (test code = 6768-6) [facility] CountyLipid 1996 panel - Serum or [id number] 07:52:00 Test Item Value Reference Range Interpretation Comments cholesterol level (test code = 158 mg/dL 150-200 cholesterol level) triglycerides level (test code = 88 mg/dL <150 triglycerides level) HDL cholesterol (test code = HDL 48 mg/dL >55 L cholesterol) LDL cholesterol direct (test code = 105 mg/dL <100 H LDL cholesterol direct) cholesterol risk ratio (test code = 3.291 cholesterol risk ratio) [facility] CountyHemoglobin A1c [Mass/volume] in [id number] 11:38:00 Test Item Value Reference Range Interpretation Comments Hemoglobin A1c [Mass/volume] in Blood 5.6 % 4.0-6.0 (test code = 93769-1) [facility] blood [id number] 07:51:00 Test Item Value Reference Range Interpretation Comments [facility] blood collection sent to [facility] (test code = [facility] blood collection) [facility]Com[facility] metabolic 2000 panel - Serum or Plasma [...] Serum or Plasma (test code = 6768-6) [facility] County[facility] 1996 panel - Serum or [id number] 06:13:00 Test Item Value Reference Range Interpretation Comments cholesterol level (test code = 143 mg/dL 150-200 L cholesterol level) triglycerides level (test code = 78 mg/dL <150 triglycerides level) HDL cholesterol (test code = HDL 50 mg/dL >55 L cholesterol) LDL cholesterol direct (test code = 83 mg/dL <100 LDL cholesterol direct) cholesterol risk ratio (test code = 2.860 cholesterol risk ratio) [facility] CountyThyrotropin [Units/volume] in Serum or [id number] 06:13:00 Test Item Value Reference Range Interpretation Comments Thyrotropin [Units/volume] in 3.30 uIU/mL 0.36-3.74 Serum or Plasma (test code = 3016-3) [facility] County[facility]-Type Natriuretic [id number] 12:18:00 Test Item Value Reference Range Interpretation Comments B-Type Natriuretic Peptide (test 114.3 pg/mL 0.0-100.0 H code = 110950) Lipid [id number] 23:52:00 Test Item Value Reference Range Interpretation Comments Cholesterol (test 151 mg/dL 0-200 N code = CHOL) Triglycerides (test 111 mg/dL 9-200 N code = TRIG) HDL (test code = 44 mg/dL 40-60 N HDL) Chol/HDL (test code 3.4 Ratio 0.0-5.0 N = CHOLPHDL) LDL, Calculated 85 mg/dL 0-130 N (NOTE)RISK O F HEART (test code = LDLC) DISEASEPu blished by [place] Heart AssociationAnal yte Optimal Boderli ne Increased RiskC HOL <200 200-239 >240TR IG <150 150-199 >200HDL Male: >60 <40HDL Fema le: >60 <50LDL <100 130 -159 >160LDL NEAR OP TIMAL IS 100-129 VLDL (test code = 22 mg/dL 5-40 N VLDL) LDL/HDL (test code = 2 LDLPHDL) Comprehensive Metabolic [id number] 23:52:00 Test Item Value Reference Range Interpretation [...] National Kidney Foundation,http :[email or web address] [email or web address] CBC with [id number] 23:32:00 Test Item Value Reference Range Interpretation [...] code = ALYMPH) 2.0 K/cumm 0.5-4.6 N [place] Abs (test code = AMONO) 0.9 K/cumm 0.0-1.2 N Eos Abs (test code = AEOS) 0.16 K/cumm 0.00-0.74 N Baso Abs (test code = ABASO) 0.1 K/cumm 0.00-0.21 N
--- NOTE | 2022-06-12 11:17 | ER ---
Nurse's Notes [facility] Name: Yasmany Ambriz Age: 86 yrs Sex: Male : 1935 Arrival Date: 06/12/2022 Time: 11:01 Bed Waiting Private MD: Diagnosis: Abrasion of left elbow Presentation: 06/12 11:05 Chief complaint: Patient states: pt here on Friday fell on left arm. worried some of iw the swelling means something else might be wrong. Pt has good ROM and denies pain. Coronavirus screen: Vaccine status: Patient reports receiving the 2nd dose of the covid vaccine. Client denies travel out of the [place] in the last 14 days. Ebola Screen: Patient negative for fever greater than or equal to 101.5 degrees Fahrenheit, and additional compatible Ebola Virus Disease symptoms Patient denies exposure to infectious person. Patient denies travel to an Ebola-affected area in the 21 days before illness onset. Initial Sepsis Screen: Does the patient meet any 2 criteria? No. Patient's initial sepsis screen is negative. Does the patient have a suspected source of infection? No. Patient's initial sepsis screen is negative. Risk Assessment: Do you want to hurt yourself or someone else? Patient reports no desire to harm self or others. Onset of symptoms was June 07, 2022. 11:05 Method Of Arrival: Ambulatory iw 11:05 Acuity: SEEMA 4 iw Triage Assessment: 11:11 General: Appears in no apparent distress. comfortable, slender, well groomed, well iw developed, well nourished, Behavior is calm, cooperative, appropriate for age. Pain: Denies pain. Historical: - Allergies: 11:11 Dilaudid; iw - Home Meds: 11:11 Isosorbide Mononitrate Oral [Active]; Plavix Oral [Active]; iw - PMHx: 11:11 Hypercholesterolemia; Hypertension; iw - Immunization history:: Adult Immunizations up to date. - Social history:: Smoking status: Patient denies any tobacco usage or history of. Screenin:12 Abuse screen: Denies threats or abuse. Denies injuries from another. Nutritional iw screening: No deficits noted. Tuberculosis screening: No symptoms or risk factors identified. Fall Risk None identified. Vital Signs: 11:05 BP 142 / 73; Pulse 77; Resp 16; Temp 98.6; Pulse Ox 98% ; Weight 63.5 kg; Height 5 ft. iw 6 in. (167.64 cm); Pain 0/10; 11:05 Body Mass Index 22.60 (63.50 kg, 167.64 cm) iw ED Course: 11:01 Patient arrived in ED. mr 11:02 Josiah Moses DO is Attending Physician. ms3 11:11 Triage completed. iw 11:11 Arm band placed on left wrist. iw 11:12 Patient has correct armband on for positive identification. iw 11:12 No provider procedures requiring assistance completed. iw 11:12 Patient did not have IV access during this emergency room visit. iw 11:22 Margo Rodriguez, RN is Primary Nurse. iw Administered Medications: No medications were administered Medication: 11:12 VIS not applicable for this client. iw Outcome: 11:12 Condition: good iw 11:16 Discharge ordered by . ms3 11:34 Patient left the ED. 5 Signatures: Ghada Alcantara mr Margo Rodriguez, RN RN Josiah Moses DO DO ms3 Norma Bustamante RN RN [facility] er
--- NOTE | 2022-06-12 11:17 | EDPHYS ---
Physician Documentation [facility] Name: Yasmany Ambriz Age: 86 yrs Sex: Male : 1935 Arrival Date: 06/12/2022 Time: 11:01 Bed Waiting Private MD: ED Physician Josiah Moses HPI: 06/12 11:16 This 86 yrs old Male presents to ER via Ambulatory with complaints of abrasion with ms3 swelling. 11:16 The patient or guardian complains of an abrasion. The complaints affect the left elbow. ms3 Context: resulted from a fall, from a standing position. Onset: The symptoms/episode began/occurred 3 day(s) ago. Modifying factors: The symptoms are alleviated by nothing. the symptoms are aggravated by nothing. Associated signs and symptoms: Pertinent negatives: decreased range of motion, fever, nausea, pain, vomiting, warmth. Severity of symptoms: At their worst the symptoms were mild, in the emergency department the symptoms have resolved. Historical: - Allergies: 11:11 Dilaudid; iw - Home Meds: 11:11 Isosorbide Mononitrate Oral [Active]; Plavix Oral [Active]; iw - PMHx: 11:11 Hypercholesterolemia; Hypertension; iw - Immunization history:: Adult Immunizations up to date. - Social history:: Smoking status: Patient denies any tobacco usage or history of. ROS: 11:16 Constitutional: Negative for fever, and chills. Neck: Negative for injury, pain, and ms3 swelling, Cardiovascular: Negative for chest pain, and palpitations. Respiratory: Negative for shortness of breath, cough, wheezing, and pleuritic chest pain, Abdomen/GI: Negative for abdominal pain, nausea, vomiting, diarrhea, and constipation, Neuro: Negative for headache, weakness, numbness, tingling. Hematologic/Lymphatic: Negative for swollen nodes, abnormal bleeding, and unusual bruising. 11:16 Skin: Positive for abrasion(s). 11:16 All other systems are negative. Exam: 11:16 Constitutional: This is a well developed, well nourished patient who is awake, alert, ms3 and in no acute distress. Eyes: Pupils equal round and reactive to light, extra-ocular motions intact. Lids and lashes normal. Conjunctiva and sclera are non-icteric and not injected. Periorbital areas with no swelling, redness, or edema. Neck: Trachea midline, no cervical lymphadenopathy. Supple, full range of motion without nuchal rigidity, or vertebral point tenderness. No Meningismus. Chest/axilla: Normal chest wall appearance and motion. Nontender with no deformity. Cardiovascular: Regular rate and rhythm with a normal S1 and S2. No gallops, murmurs, or rubs. Normal PMI, no JVD. No pulse deficits. Respiratory: Lungs have equal breath sounds bilaterally, clear to auscultation and percussion. No rales, rhonchi or wheezes noted. No increased work of breathing, no retractions or nasal flaring. Vital Signs: 11:05 BP 142 / 73; Pulse 77; Resp 16; Temp 98.6; Pulse Ox 98% ; Weight 63.5 kg; Height 5 ft. iw 6 in. (167.64 cm); Pain 0/10; 11:05 Body Mass Index 22.60 (63.50 kg, 167.64 cm) iw MDM: 11:16 Patient medically screened. ms3 11:16 Differential diagnosis: dislocation. Data reviewed: vital signs, nurses notes, and as a ms3 result, I will discharge patient. Counseling: I had a detailed discussion with the patient and/or guardian regarding: the historical points, exam findings, and any diagnostic results supporting the discharge/admit diagnosis, the need for outpatient follow up, to return to the emergency department if symptoms worsen or persist or if there are any questions or concerns that arise at home. Special discussion: I discussed with the patient/guardian in detail that at this point there is no indication for admission to the hospital. It is understood, however, that if the symptoms persist or worsen the patient needs to return immediately for re-evaluation. Administered Medications: No medications were administered Disposition Summary: 06/12/22 11:16 Discharge Ordered Location: Home ms3 Condition: Stable ms3 Diagnosis - Abrasion of left elbow ms3 Followup: ms3 - With: Private Physician - When: 2 - 3 days - Reason: Recheck today's complaints Discharge Instructions: - Discharge Summary Sheet ms3 - Abrasion, [id number] ms3 Forms: - Medication Reconciliation Form ms3 - Thank You Letter ms3 - Antibiotic Education ms3 - Prescription Opioid Use ms3 Signatures: Michael, Margo, RN RN iw Moses, Josiah, DO DO ms3
[2022-06-12 11:48] VITALS: BP 142/73; TEMP 98.6; O2SAT 98
== END 2022-06-12 11:34 | disposition home or self-care (01) ==
LOC: ER 10:59
DX: S50.312A Abrasion of left elbow, initial encounter (principal); I10 Essential (primary) hypertension; Z88.8 Allergy status to other drugs, medicaments and biological substances

== ENCOUNTER 2023-06-24 07:50 | Day surgery (SDC) | payer OTHER ==
[2023-06-24] MEDS ORDERED: Ringers Lactate 1,000 ML IV ONE (08:20)
[2023-06-24] MEDS ORDERED: propofoL 200 MG/20 ML VIAL IV ONE (09:35)
[2023-06-24] MEDS ORDERED: LIDOCAINE 1% MPF 5 ML VIAL ONE (09:35)
[2023-06-24 14:59] VITALS: BP 148/86; TEMP 97.4; O2SAT 98
== END 2023-06-24 10:51 | disposition home or self-care (01) ==
LOC: OR 07:50
PROVIDERS: ATTEND Internal Medicine Gastroenterology
PROC: 0DJD8ZZ Inspection of Lower Intestinal Tract, Via Natural or Artificial Opening Endoscopic (ICD-10-PCS; principal; 2023-06-24 09:15)
DX: Z12.11 Encounter for screening for malignant neoplasm of colon (principal); Z85.038 Personal history of other malignant neoplasm of large intestine; K63.89 Other specified diseases of intestine; K57.30 Diverticulosis of large intestine without perforation or abscess without bleeding; K64.8 Other hemorrhoids
CPT/HCPCS: J2704; J2001; J7120; G0105